=== PATIENT | male | born 1930 | race Caucasian/White ===

== ENCOUNTER 2017-04-13 13:54 | Inpatient (IN) | payer OTHER ==
[~2017-04-13] VITALS: Ht 170.2 cm; Wt 59.6 kg
[2017-04-13] MEDS ORDERED: ACETAMINOPHEN 325 MG TAB PO ONE (15:00)
[2017-04-13] MEDS ORDERED: ACETAMINOPHEN 325 MG TAB ONE (15:06)
[2017-04-13] MEDS ORDERED: IBUPROFEN 600 MG TAB PO STA (17:36)
[2017-04-13] MEDS ORDERED: OSELTAMIVIR PHOSPHATE 75 MG CAP PO ONE (17:45)
[2017-04-13] MEDS ORDERED: LEVOFLOXACIN 500 MG TAB PO ONE (17:45)
--- NOTE | 2017-04-13 18:51 | Diagnostic Imaging Report ---
EXAM: XR CHEST 2 VIEWS DATE: 04/13/2017 5:36 PM INDICATION: Cough COMPARISON: None FINDINGS: Lines and Tubes: None Heart and Mediastinum: Cardiomegaly. Aortic vascular calcifications. Lungs and Pleura: Patchy basilar opacities. Trace effusions. Bones and Soft Tissues: No acute findings. IMPRESSION: 1. Cardiomegaly with mild edema. Trace effusions. 2. Superimposed pneumonia not excluded. Signed by: Dr. Portillo Grant MD on 04/13/2017 6:47 PM
[2017-04-13] MEDS ORDERED: SODIUM CHLORIDE 0.9% 1000ML 1,000 ML IV STA (19:06)
[2017-04-13 19:21] LABS: BASOPHILS % 0.4 % (0.0-1.0); EOSINOPHILS % 0.1 % (0.0-6.0); HEMATOCRIT 24.6 % (38.2-49.6); HEMOGLOBIN 8.3 g/dL (14.0-18.0); LYMPHOCYTES # (AUTO) 0.4 (1.0-3.2); LYMPHOCYTES % 3.5 % (18.0-39.1); MEAN CORPUSCULAR HEMOGLOBIN 28.5 pg (28-32); MEAN CORPUSCULAR HGB CONC 33.7 g/dL (31-35); MEAN CORPUSCULAR VOLUME 84.5 fL (81-99); MONOCYTES % 9.2 % (4.4-11.3); NEUTROPHILS # (AUTO) 9.2 (2.1-6.9); NEUTROPHILS % 86.5 % (38.7-80.0); PLATELET COUNT 229 x10e3/uL (140-360); RED BLOOD COUNT 2.91 x10e6/uL (4.3-5.7); RED CELL DISTRIBUTION WIDTH 13.7 % (11.7-14.4)
[2017-04-13] MEDS ORDERED: WATER STERILE 10 ML VIAL IV SCH (19:30)
[2017-04-13] MEDS: ALBUTEROL SULF 0.083% NEB SOLN 3 ML NEB NEB SCH ×2 (19:30→23:45)
[2017-04-13] MEDS ORDERED: CEFTRIAXONE SOD 1 GM VIAL IV SCH (19:30)
[2017-04-13 19:56] LABS: ALANINE AMINOTRANSFERASE 12 IU/L (0-55); ALBUMIN 2.8 g/dL (3.5-5.0); ALKALINE PHOSPHATASE 57 IU/L (40-150); ANION GAP 10.3 mmol/L (8-16); BLOOD UREA NITROGEN 13 mg/dL (7-26); BUN/CREATININE RATIO 16 (6-25); CALCIUM 7.7 mg/dL (8.4-10.2); CARBON DIOXIDE 23 mmol/L (22-29); CHLORIDE 98 mmol/L (98-107); CREATININE, SERUM 0.81 mg/dL (0.72-1.25); EST GLOMERULAR FILTRATION RATE > 60 ML/MIN (60-); GLUCOSE 120 mg/dL (74-118); POTASSIUM 3.3 mmol/L (3.5-5.1); SODIUM 128 mmol/L (136-145)
[2017-04-13] MEDS ORDERED: ENOXAPARIN SODIUM INJ 100 MG/ML SYR SC ONE (20:00)
[2017-04-13] MEDS: SODIUM CHLORIDE 0.9% 1000ML 1,000 ML IV SCH ×2 (20:25→23:00)
[2017-04-13 21:15] VITALS: BP 96/60
[2017-04-13 22:50] VITALS: BP 96/60
[2017-04-13] MEDS: IPRATROPIUM BROMIDE 0.02% 2.5 ML NEB NEB SCH (23:45)
[2017-04-14] VITALS: BP 99/62
[2017-04-14 01:33] LABS: CREATINE KINASE MB 1.4 ng/mL (0.00-5.00); TROPONIN I 0.075 ng/mL (0-0.300)
[2017-04-14] MEDS: ALBUTEROL SULF 0.083% NEB SOLN 3 ML NEB NEB SCH ×2 (03:00→07:40)
[2017-04-14 04:00] VITALS: BP_SYST 124; BP_SYST 146; BP_DIAS 74; BP_DIAS 76
[2017-04-14] MEDS ORDERED: AMLODIPINE BESY10 MG PO (04:19)
[2017-04-14] MEDS ORDERED: CALCIUM 500+D1 EACH (04:19)
[2017-04-14] MEDS ORDERED: B-12500 MCG (04:20)
[2017-04-14] MEDS ORDERED: ALENDRONATE SOD70 MG (04:21)
[2017-04-14] MEDS ORDERED: ACETAMINOPHEN 325 MG TAB PO PRN (05:00)
[2017-04-14] MEDS ORDERED: DILTIAZEM HCL 5 MG/ML 5 ML VIAL IV PRN (05:00)
[2017-04-14] MEDS ORDERED: METOPROLOL TARTRATE 25 MG TAB PO ONE (05:00)
[2017-04-14] MEDS: SODIUM CHLORIDE 0.9% 1000ML 1,000 ML IV SCH (07:07)
[2017-04-14] MEDS: IPRATROPIUM BROMIDE 0.02% 2.5 ML NEB NEB SCH ×4 (07:40→23:30)
[2017-04-14 08:02] VITALS: BP 104/67
[2017-04-14] MEDS: METOPROLOL TARTRATE 50 MG TAB PO SCH ×2 (08:30→16:00)
[2017-04-14] MEDS: OSELTAMIVIR PHOSPHATE 75 MG CAP PO SCH ×2 (08:30→17:00)
[2017-04-14 08:43] LABS: BASOPHILS % 0.3 % (0.0-1.0); HEMATOCRIT 25.4 % (38.2-49.6); HEMOGLOBIN 8.6 g/dL (14.0-18.0); LYMPHOCYTES # (AUTO) 0.1 (1.0-3.2); LYMPHOCYTES % 1.7 % (18.0-39.1); MEAN CORPUSCULAR HEMOGLOBIN 28.8 pg (28-32); MEAN CORPUSCULAR HGB CONC 33.9 g/dL (31-35); MEAN CORPUSCULAR VOLUME 84.9 fL (81-99); MONOCYTES # (AUTO) 0.5 (0.2-0.8); MONOCYTES % 6.6 % (4.4-11.3); NEUTROPHILS % 90.8 % (38.7-80.0); PLATELET COUNT 234 x10e3/uL (140-360); RED BLOOD COUNT 2.99 x10e6/uL (4.3-5.7); RED CELL DISTRIBUTION WIDTH 13.9 % (11.7-14.4)
[2017-04-14] MEDS ORDERED: AZITHROMYCIN 500MG/NS 250 ML 250 ML IV SCH (09:00)
[2017-04-14 09:21] LABS: ANION GAP 10.1 mmol/L (8-16); BLOOD UREA NITROGEN 11 mg/dL (7-26); BUN/CREATININE RATIO 15 (6-25); CALCIUM 7.3 mg/dL (8.4-10.2); CARBON DIOXIDE 22 mmol/L (22-29); CHLORIDE 104 mmol/L (98-107); CREATININE, SERUM 0.71 mg/dL (0.72-1.25); EST GLOMERULAR FILTRATION RATE > 60 ML/MIN (60-); GLUCOSE 96 mg/dL (74-118); POTASSIUM 3.1 mmol/L (3.5-5.1); SODIUM 133 mmol/L (136-145)
[2017-04-14] MEDS ORDERED: LEVOFLOXACIN 500 MG TAB PO ONE (10:30)
[2017-04-14] MEDS ORDERED: POTASSIUM CHLORIDE 20 MEQ TAB CR PO ONE (10:30)
[2017-04-14 11:58] LABS: CREATINE KINASE MB 1.7 ng/mL (0.00-5.00); TROPONIN I 0.074 ng/mL (0-0.300)
[2017-04-14 12:00] VITALS: BP 108/56
[2017-04-14] MEDS: LEVOFLOXACIN 500MG/D5W 100ML 100 ML IV SCH (12:00)
[2017-04-14] MEDS ORDERED: LEVALBUTEROL HCL SOLN NEBU 1.25 MG/3 ML NEB INH PRN (12:00)
[2017-04-14] MEDS: LEVALBUTEROL HCL SOLN NEBU 1.25 MG/3 ML NEB INH SCH ×3 (13:00→23:30)
[2017-04-14] MEDS ORDERED: VANCOMYCIN 1GM/NS 250 ML 250 ML IV ONE (13:30)
[2017-04-14] MEDS: METHYLPREDNISOLONE SOD SUCC 40 MG/ML VIAL IV SCH ×2 (14:00→20:13)
--- NOTE | 2017-04-14 15:44 | History and Physical ---
PRIMARY CARE PROVIDER: Is Dr. Buckley. CHIEF COMPLAINT: Fever and influenza. HISTORY: Patient is a pleasant 86-year-old male who came in because of cough and fever for the past 2 days. Patient was found to have influenza positive. The patient is otherwise stable. He is feeling much better and back to his baseline. Fever has resolved, low-grade temperature with giving Tylenol. The patient is breathing much better. He requested to go home for the holiday. PAST MEDICAL HISTORY: Hypertension, osteoporosis and colon cancer. PAST SURGICAL HISTORY: Noncontributory. SOCIAL HISTORY: Patient does not smoke or use alcohol. No recreational drug use. ALLERGIES: TO NO KNOWN ALLERGY. HOME MEDICATIONS: List reviewed. REVIEW OF SYSTEMS: Cough, fever improving. PHYSICAL EXAMINATION: VITAL SIGNS: Temperature is 99.7. Blood pressure 104/67. Pulse rate 111. Respiration 18. Repeated pulse rate is 90. GENERAL: The patient is not in acute distress. He is much better. HEENT: Normocephalic, atraumatic, anicteric. NECK: Supple grossly. PULMONARY: Diminished breath sounds without any wheezing. CARDIOVASCULAR: S1/S2. Regular rate and rhythm. ABDOMEN: Soft. Positive bowel sounds. Nontender, nondistended. EXTREMITIES: No cyanosis or edema. NEUROLOGIC: There is no gross focal deficit. LABORATORY: WBC is 7.7, hemoglobin 8.6, hematocrit 25.4, platelets 234. Sodium is 128, potassium 3.3, chloride 98, bicarb 23, BUN 13, creatinine 0.8. Glucose is 120. Influenza test is positive. IMPRESSION: 1. Influenza. 2. Upper respiratory infection. 3. Possible early pneumonia. PLAN: Patient to go home for the holiday. He will be resting at home. He will get Atrovent HFA p.r.n., Proventil p.r.n., Claritin 10 mg daily, Tamiflu 75 mg b.i.d. for 7 days, Mucinex 600 mg b.i.d., Levaquin 500 mg daily for 5 days, and Robitussin AC p.r.n. The patient to rest at home. Follow up with his family doctor next week. Job#: [id number] EV
[2017-04-14 16:40] VITALS: BP 102/58
[2017-04-14 17:08] LABS: CREATINE KINASE MB 1.5 ng/mL (0.00-5.00); TROPONIN I 0.052 ng/mL (0-0.300)
--- NOTE | 2017-04-14 18:47 | Diagnostic Imaging Report ---
EXAM: CT Chest WITHOUT contrast INDICATION: COMPARISON: None. TECHNIQUE: The Chest was scanned utilizing a multidetector helical scanner without the use of IV contrast. Coronal and sagittal reformations were obtained. Reformatted axial MIP images were obtained and reviewed. IV CONTRAST: None COMPLICATIONS: None RADIATION DOSE: Total DLP: 463 mGy*cm Estimated effective dose: (DLP x 0.015 x size factor) mSv CTDIvol has been reviewed. It is below the limits set by the Radiation Protocol Committee (RPC). FINDINGS: Lines and Tubes: None. Lower Neck: The visualized thyroid gland is grossly unremarkable with no suspicious or significant nodule identified. Heart and Great Vessels: The aorta and main pulmonary artery measure 41 and 38 mm. respectively. The cardiothoracic radio measures 14/26. Small pericardial effusion. Decreased attenuation of blood pool. Advanced coronary artery vascular calcifications, mild mitral annular calcifications, and moderate aortic valvular calcifications. Lymph Nodes: Scattered mediastinal lymph nodes, borderline by size criteria. The hilar regions are sub-optimally evaluated given lack of IV contrast. Lungs: Small left and moderate right pleural effusion. Dense areas of consolidation in the lung bases incompletely evaluated given lack of IV contrast. Scattered septal thickening and scattered groundglass opacities. Minimal bronchiectasis and airspace opacity in the anterior aspect of the left upper lobe with more focal alveolar opacity medial aspect right upper lobe and right middle lobe. Granuloma left lower lobe. Upper abdomen: Limited. Unremarkable. Bones and Soft Tissues: No acute findings. IMPRESSION: 1. Exam limited given lack of IV contrast. 2. Cardiomegaly, small pericardial effusion, small left pleural effusion, moderate right pleural effusion, septal thickening, and scattered groundglass opacities consistent with volume overload. 3. Dense areas of consolidation in the lung bases incompletely evaluated given lack of IV contrast. Findings could represent atelectasis and/or pneumonia, with aspiration not excluded. Scattered areas of nodularity likely infectious. Underlying malignancy difficult to exclude. 4. Ectasia ascending aorta 41 mm. 5. Prominent pulmonary trunk, which can be seen in the setting of pulmonary hypertension. 6. Probable reactive adenopathy. Signed by: Dr. Portillo Grant MD on 04/14/2017 6:44 PM
[2017-04-14 20:00] VITALS: BP 92/53
[2017-04-15] VITALS: BP 97/55
[2017-04-15 04:00] VITALS: BP 119/77
[2017-04-15 08:00] VITALS: BP 133/82
[2017-04-15] MEDS: LEVALBUTEROL HCL SOLN NEBU 1.25 MG/3 ML NEB INH SCH ×3 (08:20→20:12)
[2017-04-15] MEDS: IPRATROPIUM BROMIDE 0.02% 2.5 ML NEB NEB SCH ×3 (08:20→20:12)
[2017-04-15] MEDS: METHYLPREDNISOLONE SOD SUCC 40 MG/ML VIAL IV SCH ×2 (09:00→21:49)
[2017-04-15] MEDS: METOPROLOL TARTRATE 50 MG TAB PO SCH ×2 (09:00→17:00)
[2017-04-15] MEDS: OSELTAMIVIR PHOSPHATE 75 MG CAP PO SCH ×2 (09:00→17:00)
[2017-04-15] MEDS ORDERED: POTASSIUM CHLORIDE 20 MEQ TAB CR PO ONE ×2 (09:30→10:00)
[2017-04-15 10:02] LABS: BASOPHILS % 0.1 % (0.0-1.0); HEMATOCRIT 25.8 % (38.2-49.6); HEMOGLOBIN 8.4 g/dL (14.0-18.0); LYMPHOCYTES # (AUTO) 0.2 (1.0-3.2); LYMPHOCYTES % 2.3 % (18.0-39.1); MEAN CORPUSCULAR HEMOGLOBIN 27.8 pg (28-32); MEAN CORPUSCULAR HGB CONC 32.6 g/dL (31-35); MEAN CORPUSCULAR VOLUME 85.4 fL (81-99); MONOCYTES # (AUTO) 0.5 (0.2-0.8); MONOCYTES % 4.5 % (4.4-11.3); NEUTROPHILS # (AUTO) 9.5 (2.1-6.9); NEUTROPHILS % 92.4 % (38.7-80.0); PLATELET COUNT 246 x10e3/uL (140-360); RED BLOOD COUNT 3.02 x10e6/uL (4.3-5.7); RED CELL DISTRIBUTION WIDTH 14.2 % (11.7-14.4)
[2017-04-15] MEDS ORDERED: FUROSEMIDE INJ 10 MG/ML 4 ML VIAL IV ONE (10:15)
[2017-04-15 10:22] LABS: ANION GAP 9.8 mmol/L (8-16); BLOOD UREA NITROGEN 11 mg/dL (7-26); BUN/CREATININE RATIO 15 (6-25); CALCIUM 7.5 mg/dL (8.4-10.2); CARBON DIOXIDE 22 mmol/L (22-29); CHLORIDE 102 mmol/L (98-107); CREATININE, SERUM 0.74 mg/dL (0.72-1.25); EST GLOMERULAR FILTRATION RATE > 60 ML/MIN (60-); GLUCOSE 175 mg/dL (74-118); POTASSIUM 3.8 mmol/L (3.5-5.1); SODIUM 130 mmol/L (136-145)
--- NOTE | 2017-04-15 11:14 | Consultation ---
DATE OF CONSULTATION: April 14, 2017 REASON FOR CONSULTATION: Hypoxia and shortness of breath. CHIEF COMPLAINT: The patient is admitted with shortness of breath and tested positive for influenza. HPI: Mr. Peters is an 86-year-old male who has history of hypertension. He sees Dr. Buckley on a regular basis. Patient denies any complaints of chest pain or abdominal pain, nausea or vomiting. reported that 3 days ago he started having fever of 102, shortness of breath and wheezing and he was having difficulty walking so they decided to come to the emergency room and the emergency room chest x-ray was done. I have reviewed the images and not showing any focal infiltrate. Possibility of pneumonia, however, not sure. He has been started on IV Levaquin and p.o. Tamiflu with nebulizer treatment. Today his oxygen saturation was checked and he was hypoxic to 80% without oxygen and, hence, pulmonary consultation was called. REVIEW OF SYSTEMS: GENERAL: Denies any chills. He was having fever at home here. The T max was 101.2. HEENT: Denies any head trauma or head injury. Denies any earache, nosebleed. The patient has some sore throat. RESPIRATORY: He has wheezing and shortness of breath. GI: Denies any nausea or vomiting. CVS: Denies any chest pain. MUSCULOSKELETAL: As per HPI. The rest of the review of systems are negative except as in HPI. PAST MEDICAL HISTORY: Hypertension. Patient has history of colon cancer in 1999 and has colostomy. FAMILY HISTORY AND SOCIAL HISTORY: He smoked for almost 50 years, and quit around 25 years ago and not on any nebulizer. Lives with his . He used to work in [employer] plant. PHYSICAL EXAMINATION: VITALS: Temperature 99.7. Pulse 111. Blood pressure 104/67. Respiratory rate of 18. O2 sat 100% on 5 liters. T-max of 101.2. SKIN: Warm and dry. GENERAL APPEARANCE: He is an elderly male in mild respiratory distress. He is wheezing bilaterally HEENT: Normocephalic, atraumatic. Pupils reactive. NECK: Supple with no JVD. Thyroid not enlarged. CHEST: Wheezing bilaterally. HEART: S1 and S2 audible. ABDOMEN: Soft, nontender and nondistended. Colostomy. EXTREMITIES: No pedal edema. NEUROLOGIC: Awake and alert. LABORATORY DATA: Sodium 133, potassium 3.1, chloride 104, BUN 11, creatinine 0.7. White count of 7.73, hemoglobin 8.6, platelets 234. Cardiac enzymes negative. I have reviewed the chest x-ray images, unlikely that there is any pneumonia. ASSESSMENT AND PLAN: Mr. Peters is an 86-year-old male who presented with influenza and worsening shortness of breath, now wheezing, likely has reactive airways due to influenza versus underlying pneumonia. CURRENT PROBLEMS: 1. Reactive airways due to influenza infection. 2. Possible pneumonia. 3. Hypertension. 4. History of colostomy. 5. Remote history of colon cancer. Has permanent colostomy. PLAN: 1. Agree with Tamiflu and Levaquin. 2. Will give 1 dose of vancomycin. 3. CT chest has been ordered and will follow up the results. If there is no clear-cut pneumonia, the patient will not need vancomycin. 4. Hypoxia, likely due to reactive airway and wheezing. May have underlying COPD as patient has almost [id number] smoking history. He may need to be discharged on home oxygen. 5. Will add low-dose steroids for reactive airways. 6. Continue the patient on nebulizer treatment as ordered. Discussed with patient's at bedside. Job#: [id number]
[2017-04-15] MEDS: LEVOFLOXACIN 500MG/D5W 100ML 100 ML IV SCH (12:00)
[2017-04-15 16:00] VITALS: BP 139/67
[2017-04-15] MEDS ORDERED: SODIUM CHLORIDE 0.9% 250ML 250 ML ONE (16:02)
[2017-04-15] MEDS ORDERED: ENOXAPARIN SOD INJ 40 MG/0.4 ML SYR SC SCH (17:00)
[2017-04-15 20:00] VITALS: BP 130/67
[2017-04-16] VITALS: BP 124/77
[2017-04-16] MEDS: LEVALBUTEROL HCL SOLN NEBU 1.25 MG/3 ML NEB INH SCH ×4 (02:05→19:00)
[2017-04-16] MEDS: IPRATROPIUM BROMIDE 0.02% 2.5 ML NEB NEB SCH ×4 (02:05→19:00)
[2017-04-16 04:00] VITALS: BP 140/71
--- NOTE | 2017-04-16 05:07 | Consultation ---
DATE OF CONSULTATION: April 15, 2017 REASON FOR CONSULTATION: Atrial fibrillation. HISTORY OF PRESENT ILLNESS: Mr. Damon is an 86-year-old gentleman with a past medical history as listed below, apparently had some cough and shortness of breath on Saturday. On Saturday, the patient developed a temperature of 102 and was repeatedly coughing to the point that his sides of his chest were hurting. He decided to come to the hospital. He was diagnosed with influenza and pneumonia, and admitted to the hospital. Patient states he is received a flu shot about 3 months back. He was noted to be in atrial fibrillation, so I was consulted. Patient and his state that have he has a history of atrial fibrillation, and has not been taking and anticoagulants. He feels a little bit better now. REVIEW OF SYSTEMS CONSTITUTIONAL: Has some fatigue and weakness. HEENT: No headache, blurring of vision, seizures, or syncope. CARDIOVASCULAR: No chest pain, dyspnea, orthopnea, PND. RESPIRATORY: Has cough. No fever. A scant amount of expectoration. GI: No abdominal pain, vomiting or diarrhea. : No, dysuria frequency or incontinence. ALLERGIES: NO KNOWN DRUG ALLERGIES. MEDICATIONS: See list. PAST MEDICAL HISTORY: History of hypertension and history of colon cancer. SOCIAL HISTORY: Quit smoking in 1968. Does not drink alcohol. FAMILY HISTORY: Noncontributory. PHYSICAL EXAMINATION GENERAL: A moderately built and nourished gentleman alert, oriented, and not in any obvious distress. VITALS: Heart rate 73, blood pressure 133/82, respiratory rate 18, temperature 95.8. HEENT: Atraumatic. NECK: No JVD, bruit, thyromegaly, or lymphadenopathy. CARDIOVASCULAR: First and 2nd heart sounds heard. No murmurs, rubs or gallops appreciated. CHEST: Clear to auscultation. ABDOMEN: Soft and nontender. EXTREMITIES: No edema. LABS: EKG shows atrial fibrillation at 98 beats per minute, normal axis and incomplete right bundle branch block. Nonspecific ST-T changes. IMPRESSION 1. Influenza. 2. Atrial fibrillation. 3. History of hypertension. 4. History of colon cancer. 5. Pneumonia. 6. Anemia. 7. Hypokalemia. PLAN 1. Patient is symptomatically better. 2. Continue with antibiotics. 3. Patient's heart rate fluctuates on even beta blockers. Can continue the same. 4. Replace potassium. 5. Discussed with them about long-term anticoagulation. He is going to think about it. 6. Further cardiac workup depending on clinical course. I discussed my impression and plan of management with the patient and the family, and they understand. As always, I appreciate and thank you very much for the referral. Job#: [id number] RI
[2017-04-16 07:05] LABS: BASOPHILS % 0.1 % (0.0-1.0); HEMATOCRIT 24.7 % (38.2-49.6); HEMOGLOBIN 8.1 g/dL (14.0-18.0); LYMPHOCYTES # (AUTO) 0.2 (1.0-3.2); LYMPHOCYTES % 1.8 % (18.0-39.1); MEAN CORPUSCULAR HEMOGLOBIN 27.8 pg (28-32); MEAN CORPUSCULAR HGB CONC 32.8 g/dL (31-35); MEAN CORPUSCULAR VOLUME 84.9 fL (81-99); MONOCYTES # (AUTO) 0.6 (0.2-0.8); MONOCYTES % 4.7 % (4.4-11.3); NEUTROPHILS # (AUTO) 11.6 (2.1-6.9); NEUTROPHILS % 92.6 % (38.7-80.0); PLATELET COUNT 252 x10e3/uL (140-360); RED BLOOD COUNT 2.91 x10e6/uL (4.3-5.7); RED CELL DISTRIBUTION WIDTH 14.2 % (11.7-14.4)
[2017-04-16 07:19] LABS: ANION GAP 10.8 mmol/L (8-16); BLOOD UREA NITROGEN 15 mg/dL (7-26); BUN/CREATININE RATIO 21 (6-25); CALCIUM 7.9 mg/dL (8.4-10.2); CARBON DIOXIDE 23 mmol/L (22-29); CHLORIDE 104 mmol/L (98-107); CREATININE, SERUM 0.73 mg/dL (0.72-1.25); EST GLOMERULAR FILTRATION RATE > 60 ML/MIN (60-); GLUCOSE 126 mg/dL (74-118); POTASSIUM 4.8 mmol/L (3.5-5.1); SODIUM 133 mmol/L (136-145)
[2017-04-16 08:12] LABS: INR 0.97; PROTHROMBIN TIME 13.4 seconds (11.9-14.5)
[2017-04-16 08:19] VITALS: BP 122/79
[2017-04-16] MEDS: METOPROLOL TARTRATE 50 MG TAB PO SCH ×3 (09:56→21:35)
[2017-04-16] MEDS: METHYLPREDNISOLONE SOD SUCC 40 MG/ML VIAL IV SCH ×2 (10:02→21:35)
[2017-04-16] MEDS: AMLODIPINE BESYLATE 10 MG TAB PO SCH (10:03)
[2017-04-16] MEDS: OSELTAMIVIR PHOSPHATE 75 MG CAP PO SCH ×2 (10:03→16:39)
[2017-04-16] MEDS: APIXAB 2.5 MG TABLET PO SCH ×2 (10:03→16:39)
[2017-04-16] MEDS ORDERED: FUROSEMIDE INJ 10 MG/ML 4 ML VIAL IV SCH (12:30)
[2017-04-16 12:39] VITALS: BP 125/82
[2017-04-16] MEDS: LEVOFLOXACIN 500MG/D5W 100ML 100 ML IV SCH (13:05)
[2017-04-16] MEDS ORDERED: SODIUM CHLORIDE 0.9% 250ML 250 ML ONE (13:58)
[2017-04-16] MEDS ORDERED: PIPER-TAZ 3.375 GM 50 ML IV SCH (14:00)
[2017-04-16] MEDS: PIPERACILLIN/TAZOBAC 3.375 GM in SODIUM CHLORIDE 0.9% 100 ML IV SCH ×2 (14:15→21:36)
[2017-04-16 16:37] VITALS: BP 129/88
[2017-04-16] MEDS: FUROSEMIDE INJ 10 MG/ML 4 ML VIAL IV SCH (16:39)
[2017-04-16 20:00] VITALS: BP 127/90
[2017-04-17] VITALS: BP 128/75
[2017-04-17] MEDS: LEVALBUTEROL HCL SOLN NEBU 1.25 MG/3 ML NEB INH SCH ×4 (01:00→21:55)
[2017-04-17] MEDS: IPRATROPIUM BROMIDE 0.02% 2.5 ML NEB NEB SCH ×4 (01:00→21:55)
[2017-04-17] MEDS: PIPERACILLIN/TAZOBAC 3.375 GM in SODIUM CHLORIDE 0.9% 100 ML IV SCH ×3 (05:33→22:08)
[2017-04-17 07:20] LABS: BASOPHILS % 0.1 % (0.0-1.0); HEMATOCRIT 25.8 % (38.2-49.6); HEMOGLOBIN 8.7 g/dL (14.0-18.0); LYMPHOCYTES # (AUTO) 0.4 (1.0-3.2); LYMPHOCYTES % 3.5 % (18.0-39.1); MEAN CORPUSCULAR HEMOGLOBIN 28.5 pg (28-32); MEAN CORPUSCULAR HGB CONC 33.7 g/dL (31-35); MEAN CORPUSCULAR VOLUME 84.6 fL (81-99); MONOCYTES # (AUTO) 0.7 (0.2-0.8); MONOCYTES % 6.5 % (4.4-11.3); NEUTROPHILS # (AUTO) 9.3 (2.1-6.9); NEUTROPHILS % 89.1 % (38.7-80.0); PLATELET COUNT 309 x10e3/uL (140-360); RED BLOOD COUNT 3.05 x10e6/uL (4.3-5.7); RED CELL DISTRIBUTION WIDTH 14.4 % (11.7-14.4)
[2017-04-17] MEDS: ACETYLCYSTEINE 20% INHAL SOLN 30 ML VIAL INH SCH ×2 (07:30→12:15)
[2017-04-17 07:50] LABS: ANION GAP 10.9 mmol/L (8-16); BLOOD UREA NITROGEN 18 mg/dL (7-26); BUN/CREATININE RATIO 23 (6-25); CALCIUM 7.9 mg/dL (8.4-10.2); CARBON DIOXIDE 26 mmol/L (22-29); CHLORIDE 101 mmol/L (98-107); CREATININE, SERUM 0.78 mg/dL (0.72-1.25); EST GLOMERULAR FILTRATION RATE > 60 ML/MIN (60-); GLUCOSE 123 mg/dL (74-118); POTASSIUM 3.9 mmol/L (3.5-5.1); SODIUM 134 mmol/L (136-145)
[2017-04-17 08:01] VITALS: BP 123/74
[2017-04-17] MEDS: OSELTAMIVIR PHOSPHATE 75 MG CAP PO SCH ×2 (09:05→16:51)
[2017-04-17] MEDS: AMLODIPINE BESYLATE 10 MG TAB PO SCH (09:05)
[2017-04-17] MEDS: METOPROLOL TARTRATE 50 MG TAB PO SCH ×2 (09:05→16:51)
[2017-04-17] MEDS: APIXAB 2.5 MG TABLET PO SCH ×2 (09:05→16:50)
[2017-04-17] MEDS: FUROSEMIDE INJ 10 MG/ML 4 ML VIAL IV SCH ×2 (09:05→16:50)
[2017-04-17] MEDS: METHYLPREDNISOLONE SOD SUCC 40 MG/ML VIAL IV SCH ×2 (09:05→22:08)
[2017-04-17 12:00] VITALS: BP 119/74
[2017-04-17] MEDS: LEVOFLOXACIN 500MG/D5W 100ML 100 ML IV SCH (12:45)
[2017-04-17 16:11] VITALS: BP 99/76
[2017-04-17 20:00] VITALS: BP 119/76
[2017-04-18] VITALS: BP 128/65
[2017-04-18] MEDS: METOPROLOL TARTRATE 50 MG TAB PO SCH ×4 (00:10→17:06)
[2017-04-18] MEDS: IPRATROPIUM BROMIDE 0.02% 2.5 ML NEB NEB SCH ×5 (02:55→23:45)
[2017-04-18] MEDS: LEVALBUTEROL HCL SOLN NEBU 1.25 MG/3 ML NEB INH SCH ×5 (02:55→23:45)
[2017-04-18 04:00] VITALS: BP 116/76
[2017-04-18] MEDS: PIPERACILLIN/TAZOBAC 3.375 GM in SODIUM CHLORIDE 0.9% 100 ML IV SCH ×3 (06:07→22:01)
[2017-04-18 08:18] VITALS: BP 122/84
[2017-04-18] MEDS: ACETYLCYSTEINE 20% INHAL SOLN 30 ML VIAL INH SCH (08:50)
[2017-04-18] MEDS: AMLODIPINE BESYLATE 10 MG TAB PO SCH (09:15)
[2017-04-18] MEDS: OSELTAMIVIR PHOSPHATE 75 MG CAP PO SCH ×2 (09:15→17:05)
[2017-04-18] MEDS: METHYLPREDNISOLONE SOD SUCC 40 MG/ML VIAL IV SCH (09:15)
[2017-04-18] MEDS: APIXAB 2.5 MG TABLET PO SCH ×2 (09:15→17:05)
[2017-04-18] MEDS: FUROSEMIDE INJ 10 MG/ML 4 ML VIAL IV SCH (09:30)
[2017-04-18] MEDS: LEVOFLOXACIN 500MG/D5W 100ML 100 ML IV SCH (11:55)
[2017-04-18 12:06] VITALS: BP 108/78
--- NOTE | 2017-04-18 14:13 | Diagnostic Imaging Report ---
PROCEDURE: A single AP view of the chest. COMPARISON: Patients [facility], CT, CT CHEST WO, 04/14/2017, 18:06. INDICATIONS: SHORTNESS OF BREATH FINDINGS: Lines/tubes: None. Lungs and pleura: Lungs are well-inflated. Patchy opacity in the left lower lung with blunting of the right lateral costophrenic sulcus, likely representing the previously visualized left effusion and associated compressive atelectasis. Small right pleural effusion and likely associated compressive atelectasis. Heart and mediastinum: Stable cardiomegaly with mild central pulmonary venous congestion. Bones: No acute bony abnormality. IMPRESSION: 1. stable cardiomegaly with mild central pulmonary venous congestion. 2. Bilateral pleural effusions and likely associated atelectasis. Carlos Blair M.D. Dictated by: Carlos Blair M.D. on 04/18/2017 at 14:22 Electronically approved by: Carlos Blair M.D. on 04/18/2017 at 14:22
[2017-04-18 16:06] VITALS: BP 106/69
[2017-04-18 20:00] VITALS: BP 125/75
[2017-04-19] VITALS: BP 107/64
[2017-04-19] MEDS: METOPROLOL TARTRATE 50 MG TAB PO SCH ×4 (00:12→18:00)
[2017-04-19 04:00] VITALS: BP 104/72
[2017-04-19] MEDS: PIPERACILLIN/TAZOBAC 3.375 GM in SODIUM CHLORIDE 0.9% 100 ML IV SCH (06:20)
[2017-04-19 07:55] VITALS: BP 128/86
[2017-04-19] MEDS: LEVALBUTEROL HCL SOLN NEBU 1.25 MG/3 ML NEB INH SCH ×3 (07:57→19:15)
[2017-04-19] MEDS: IPRATROPIUM BROMIDE 0.02% 2.5 ML NEB NEB SCH ×3 (07:57→19:15)
[2017-04-19] MEDS: APIXAB 2.5 MG TABLET PO SCH ×2 (08:50→17:00)
[2017-04-19] MEDS: PREDNISONE 20 MG TAB PO SCH (08:51)
[2017-04-19] MEDS: OSELTAMIVIR PHOSPHATE 75 MG CAP PO SCH ×2 (08:51→19:09)
[2017-04-19] MEDS: FUROSEMIDE 40 MG TAB PO SCH (08:51)
[2017-04-19] MEDS: AMLODIPINE BESYLATE 10 MG TAB PO SCH (08:51)
[2017-04-19] MEDS: IRON SUCROSE 100 MG in SODIUM CHLORIDE 0.9% 100 ML 100 ML IV SCH (11:30)
[2017-04-19 11:38] VITALS: BP 94/65
[2017-04-19 16:08] VITALS: BP 116/78
[2017-04-19 20:00] VITALS: BP 100/71
[2017-04-20 00:23] VITALS: BP 98/71
[2017-04-20] MEDS: LEVALBUTEROL HCL SOLN NEBU 1.25 MG/3 ML NEB INH SCH ×3 (00:30→19:32)
[2017-04-20] MEDS: IPRATROPIUM BROMIDE 0.02% 2.5 ML NEB NEB SCH ×3 (00:30→19:32)
[2017-04-20 04:00] VITALS: BP 115/71
[2017-04-20] MEDS: METOPROLOL TARTRATE 50 MG TAB PO SCH ×4 (05:35→17:15)
[2017-04-20 07:35] VITALS: BP 113/80
[2017-04-20 07:49] LABS: BASOPHILS % 0.1 % (0.0-1.0); EOSINOPHILS # (AUTO) 0.1 (0.0-0.4); EOSINOPHILS % 1.1 % (0.0-6.0); HEMATOCRIT 29.3 % (38.2-49.6); HEMOGLOBIN 9.7 g/dL (14.0-18.0); LYMPHOCYTES # (AUTO) 1.6 (1.0-3.2); LYMPHOCYTES % 17.9 % (18.0-39.1); MEAN CORPUSCULAR HEMOGLOBIN 27.5 pg (28-32); MEAN CORPUSCULAR HGB CONC 33.1 g/dL (31-35); MONOCYTES # (AUTO) 1.1 (0.2-0.8); NEUTROPHILS # (AUTO) 6.1 (2.1-6.9); NEUTROPHILS % 67.1 % (38.7-80.0); PLATELET COUNT 429 x10e3/uL (140-360); RED BLOOD COUNT 3.53 x10e6/uL (4.3-5.7); RED CELL DISTRIBUTION WIDTH 14.1 % (11.7-14.4)
[2017-04-20 08:07] LABS: BLOOD UREA NITROGEN 18 mg/dL (7-26); BUN/CREATININE RATIO 23 (6-25); CALCIUM 7.8 mg/dL (8.4-10.2); CARBON DIOXIDE 32 mmol/L (22-29); CHLORIDE 99 mmol/L (98-107); CREATININE, SERUM 0.78 mg/dL (0.72-1.25); EST GLOMERULAR FILTRATION RATE > 60 ML/MIN (60-); GLUCOSE 80 mg/dL (74-118); SODIUM 138 mmol/L (136-145)
[2017-04-20] MEDS: PREDNISONE 20 MG TAB PO SCH (09:00)
[2017-04-20] MEDS: OSELTAMIVIR PHOSPHATE 75 MG CAP PO SCH ×2 (09:00→17:14)
[2017-04-20] MEDS: FUROSEMIDE 40 MG TAB PO SCH (09:00)
[2017-04-20] MEDS: AMLODIPINE BESYLATE 10 MG TAB PO SCH (09:00)
[2017-04-20] MEDS: APIXAB 2.5 MG TABLET PO SCH ×2 (10:33→17:14)
[2017-04-20 11:19] VITALS: BP 93/67
[2017-04-20] MEDS: IRON SUCROSE 100 MG in SODIUM CHLORIDE 0.9% 100 ML 100 ML IV SCH (12:08)
[2017-04-20] MEDS: POTASSIUM CHLORIDE 20 MEQ TAB CR PO SCH ×3 (14:30→20:20)
[2017-04-20 15:33] VITALS: BP 106/76
[2017-04-20 20:00] VITALS: BP 105/71
[2017-04-21] VITALS: BP 105/64
[2017-04-21] MEDS: IPRATROPIUM BROMIDE 0.02% 2.5 ML NEB NEB SCH ×2 (01:20→07:24)
[2017-04-21] MEDS: LEVALBUTEROL HCL SOLN NEBU 1.25 MG/3 ML NEB INH SCH ×2 (01:20→07:24)
[2017-04-21] MEDS: POTASSIUM CHLORIDE 20 MEQ TAB CR PO SCH ×2 (02:00→09:02)
[2017-04-21 04:00] VITALS: BP 130/67
[2017-04-21] MEDS: METOPROLOL TARTRATE 50 MG TAB PO SCH ×3 (05:59→12:00)
[2017-04-21 07:38] VITALS: BP 121/72
[2017-04-21 08:55] LABS: BASOPHILS % 0.1 % (0.0-1.0); EOSINOPHILS # (AUTO) 0.2 (0.0-0.4); HEMATOCRIT 30.1 % (38.2-49.6); HEMOGLOBIN 9.9 g/dL (14.0-18.0); LYMPHOCYTES # (AUTO) 1.2 (1.0-3.2); LYMPHOCYTES % 15.2 % (18.0-39.1); MEAN CORPUSCULAR HEMOGLOBIN 27.5 pg (28-32); MEAN CORPUSCULAR HGB CONC 32.9 g/dL (31-35); MEAN CORPUSCULAR VOLUME 83.6 fL (81-99); MONOCYTES # (AUTO) 0.9 (0.2-0.8); MONOCYTES % 11.3 % (4.4-11.3); NEUTROPHILS # (AUTO) 5.3 (2.1-6.9); NEUTROPHILS % 66.8 % (38.7-80.0); PLATELET COUNT 462 x10e3/uL (140-360); RED CELL DISTRIBUTION WIDTH 14.3 % (11.7-14.4)
[2017-04-21] MEDS: AMLODIPINE BESYLATE 10 MG TAB PO SCH (09:01)
[2017-04-21] MEDS: PREDNISONE 20 MG TAB PO SCH (09:01)
[2017-04-21] MEDS: FUROSEMIDE 40 MG TAB PO SCH (09:01)
[2017-04-21] MEDS: OSELTAMIVIR PHOSPHATE 75 MG CAP PO SCH (09:01)
[2017-04-21] MEDS: APIXAB 2.5 MG TABLET PO SCH (09:01)
[2017-04-21 09:10] LABS: ANION GAP 7.5 mmol/L (8-16); BLOOD UREA NITROGEN 16 mg/dL (7-26); BUN/CREATININE RATIO 21 (6-25); CALCIUM 7.9 mg/dL (8.4-10.2); CARBON DIOXIDE 31 mmol/L (22-29); CHLORIDE 98 mmol/L (98-107); CREATININE, SERUM 0.75 mg/dL (0.72-1.25); EST GLOMERULAR FILTRATION RATE > 60 ML/MIN (60-); GLUCOSE 91 mg/dL (74-118); POTASSIUM 3.5 mmol/L (3.5-5.1); SODIUM 133 mmol/L (136-145)
[2017-04-21] MEDS: IRON SUCROSE 100 MG in SODIUM CHLORIDE 0.9% 100 ML 100 ML IV SCH (11:00)
[2017-04-21 11:25] VITALS: BP 105/63
--- NOTE | 2017-04-22 01:59 | Discharge Summary ---
No Dictation 00:07 seconds. Job#: [id number]
--- NOTE | 2017-04-22 02:03 | Discharge Summary ---
PCP: Dr. Jackson Buckley SELVAGE MACHINE OPERATOR: Dr. Yonis Vera and Dr. Janet Calle. FINAL DIAGNOSES 1. Influenza with community-acquired pneumonia. 2. Atrial fibrillation with acute diastolic dysfunction congestive heart failure. 3. Chronic anemia. 4. Medical debility. SUMMARY: Patient is an 86-year-old male who came in with early pneumonia associated with influenza. The patient was in respiratory insufficiency. He did not have any respiratory failure, although he was hypoxic and required oxygen support and nebulizer treatment. He was started on Tamiflu and community-acquired pneumonia treatment. While he was hospitalized, he developed recurrent atrial fibrillation. He was placed on metoprolol and Eliquis. The patient is doing much better now. He is stable. At this time, he will go home today. The patient refused skilled care and also refused any home health. He did not want qualify for oxygen on exertion. His oxygen saturation at room air was 94%. The patient will go home with the following medication instructions: 1. Resume home medications. 2. Eliquis 2.5 mg twice a day. 3. Lopressor 50 mg b.i.d. 4. Lasix 40 mg daily. 5. Potassium 20 mEq daily. 6. Xopenex HFA 2 puffs q.4 h. p.r.n. 7. Chey-tussin 5 mL p.o. q.6 h. as needed for cough. Patient is stable and discharged home today. Follow up with Dr. Jackson Buckley as planned. Patient will go home today with spouse. Patient has very good overall family support. Job#: [id number] LETICIA
== END 2017-04-21 12:59 | disposition home or self-care (01) | DRG 193 ==
LOC: ER 13:54 → MED/SURG3 20:45 → INTOOBSV 04-14 09:33 → OBSVTOIN 04-14 09:33
PROVIDERS: ADMIT Internal Medicine; ATTEND Internal Medicine
DX: J09.X1 Influenza due to identified novel influenza A virus with pneumonia (principal); I50.31 Acute diastolic (congestive) heart failure; J18.8 Other pneumonia, unspecified organism; I48.91 Unspecified atrial fibrillation; I11.0 Hypertensive heart disease with heart failure; D64.9 Anemia, unspecified; J44.9 Chronic obstructive pulmonary disease, unspecified; E87.6 Hypokalemia; Z85.038 Personal history of other malignant neoplasm of large intestine; Z93.3 Colostomy status; Z87.891 Personal history of nicotine dependence; R09.02 Hypoxemia
CPT/HCPCS: 36415; 71010; 71020; 71250; 80048; 80053; 82550; 82553; 82948; 83880; 84484; 85025; 85610; 87040; 87400; 93005; 93306; 94660; 99284; G0378; J0456; J1650; J1756; J1940; J1956; J2543; J2920; J3370; J7030; J7050

== ENCOUNTER → 2017-06-26 | Outpatient (CLI) | payer OTHER ==
[~2017-06-26] MED LIST: ALENDRONATE SOD70 MG; AMLODIPINE BESY10 MG PO; B-12500 MCG; CALCIUM 500+D1 EACH
--- NOTE | 2017-06-26 14:43 | Diagnostic Imaging Report ---
EXAM: CT Chest WITHOUT contrast 06/26/2017 12:52 PM INDICATION: Pneumonia. Follow-up. COMPARISON: 04/14/2017. TECHNIQUE: Chest was scanned utilizing a multidetector helical scanner from the lung apex through the level of the adrenal glands without administration of IV contrast. Absence of intravenous contrast decreases sensitivity for detection of lymphadenopathy and vascular pathology. Coronal and sagittal reformations were obtained. Routine protocol was performed. IV CONTRAST: None RADIATION DOSE: Total DLP: 400.47 mGy*cm Estimated effective dose: (DLP x 0.014 x size factor) mSv COMPLICATIONS: None FINDINGS: LINES/ TUBES: None. LUNGS AND AIRWAYS: 1.6 cm pleural-based density in the superior right upper lobe, measuring 0.5 cm on prior examination image 43 series 3. Calcified granuloma in the left lower lobe medially is unchanged. There has been interval improvement of previously present bilateral lower lobe compressive atelectasis/consolidation. There has been also interval resolution of previously present bilateral patchy groundglass densities. Small volume of fluid within the minor fissure has decreased since the prior examination. Bilateral dependent atelectasis. A 1.0 cm groundglass nodular density in the right middle lobe anteriorly on images 70 series 3 is unchanged. PLEURA: Small to moderate right pleural effusion is again observed. The previously present left pleural effusion has resolved. HEART AND MEDIASTINUM: Mild atrophy of the right thyroid lobe. No mediastinal, hilar or axillary lymphadenopathy. Ectasia of the thoracic aorta with the ascending aorta measuring 4.3 cm in maximal axial dimension on image 55 series 2. The pulmonary trunk is also dilated at 3.4 cm maximal dimension. Coronary artery calcifications. Trace pericardial effusion again noted. Calcifications of the aortic and valves. UPPER ABDOMEN: Limited non-contrast views of the upper abdomen show a nodular density in the anterior perihepatic space measuring 1.3 cm on image 91 series 2, previously 1.1 cm on image 108 series 2, possibly lining large epiphrenic lymph node. 5.0 cm cyst is present in the posterolateral interpolar region of the right kidney, only partially visualized. Mild thickening of the adrenal gland bilaterally without measurable nodules. BONES: No acute osseous abnormality. SOFT TISSUES: Unremarkable. IMPRESSION: 1. Interval resolution of small left pleural effusion and bilateral lower lobe compressive atelectasis versus consolidations. 2. Small volume right pleural effusion is unchanged. 3. Interval resolution of previously present pulmonary edema. 4. Stable to mildly increased right upper lobe pleural-based density and right middle lobe groundglass density. Suggest a follow-up CT chest nodule protocol in 6 months to further establish the stability. 5. Mildly enlarged right epiphrenic lymph node. Signed by: Dr. Mandie Martínez M.D. on 06/26/2017 2:40 PM
== END ==
LOC: CT 12:38
PROVIDERS: ATTEND Internal Medicine
DX: Z87.01 Personal history of pneumonia (recurrent) (principal); Z87.891 Personal history of nicotine dependence
CPT/HCPCS: 71250

== ENCOUNTER → 2017-07-10 | Outpatient (CLI) | payer OTHER | LOC: RESP 09:12 | PROVIDERS: ATTEND Internal Medicine | DX: Z87.891 Personal history of nicotine dependence (principal) | CPT/HCPCS: 94060; 94727; 94729 ==

== ENCOUNTER → 2017-10-14 | Outpatient (CLI) | payer OTHER ==
--- NOTE | 2017-10-14 11:14 | Diagnostic Imaging Report ---
PROCEDURE:CT CHEST WITHOUT CONTRAST COMPARISON:None. INDICATIONS:PLEURAL EFFUSION TECHNIQUE: Axial CT images of the chest were obtained from the lung apices through the adrenal glands. Coronal and sagittal reformations were made available for review. No intravenous contrast was administered. RADIATION DOSE: Total DLP: 288.1 mGy*cm Estimated effective dose: (DLP x 0.014 x size factor) mSv FINDINGS: Lymph nodes: No enlarged axillary, supraclavicular, mediastinal, or hilar lymph nodes. A right cardiophrenic lymph node measures 2.2 x 2.2 cm (previously, 1.3 x 1.6 cm). Thyroid/base of neck: Unremarkable. Heart \T\ Mediastinum:Stable cardiomegaly. The main pulmonary artery measures 3.3 cm in diameter. The ascending aorta measures 4.2 cm in diameter. A pericardial effusion measures 4 mm and is stable. Calcifications of the coronary arteries and mitral valve are stable. The esophagus is collapsed. Lungs: Right lung: Diffusely hyperinflated suggestive of COPD. Round soft tissue structure in the medial upper lobe abutting the anterior pleura and median junction line measures 1.3 x 1.9 cm (previously, 1.0 x 1.6 cm). The pleural focus of ground glass attenuation a lateral upper lobe measures 1.1 x 1.6 cm and is stable. A calcified granuloma in the lower lobe abutting the major fissure measures 3 mm. Left lung: Diffusely hyperinflated. Calcified nodule in the anterior basal segment of the lower lobe measures 1.1 x 1.4 cm and is stable. There are no new nodules. Pleura: Posterior layering right pleural effusion measures 6.1 cm (previously, 3.5 cm). No evidence of left pleural effusion. Upper abdomen:A cyst in the upper pole of the right kidney is stable. No mass in the visualized portions of the liver, pancreas, spleen, or adrenal glands. Musculoskeletal: No lytic or blastic lesions. No compression deformities. CONCLUSION: 1. Stable chronic right pleural effusion. 2. Enlarging mass in the anteromedial right upper lobe and enlarging right cardiophrenic lymph node, both concerning for malignancy. Consider evaluation of the right upper lobe nodule with PET to determine metabolic activity. 3. Stable ascending aortic ectasia and enlarged main pulmonary artery suggestive of pulmonary artery hypertension. Dictated by: Jeanne House M.D. on 10/14/2017 at 11:18 Electronically approved by: Jeanne House M.D. on 10/14/2017 at 11:18
== END ==
LOC: CT 08:40
PROVIDERS: ATTEND Internal Medicine
DX: J90 Pleural effusion, not elsewhere classified (principal)
CPT/HCPCS: 71250

== ENCOUNTER → 2017-11-08 | Outpatient (CLI) | payer OTHER ==
[~2017-11-08] MED LIST changes: +FENTANYL CITRATE/PF 100MCG/2 ML INJ ONE
--- NOTE | 2017-11-08 09:47 | Diagnostic Imaging Report ---
PROCEDURE: ULTRASOUND GUIDED RIGHT DIAGNOSTIC THORACENTESIS INDICATIONS: Pleural Effusion COMPARISON: None. TECHNIQUE: The patient was informed of the nature of the proposed procedure. The purposes, alternatives, risks, and benefits were explained and discussed. All questions were answered and written consent was obtained. Medications: 1% Xylocaine DESCRIPTION/FINDINGS: Informed consent was obtained from the patient. Sterile technique was used. An ultrasound-guided right sided diagnostic thoracentesis was performed. With the use of ultrasound guidance, a small right pleural fluid collection was identified. After infiltrating the skin with 1% xylocaine, a 20 gauge spinal needle was advanced into the right pleural space and 60 cc of serosanguinous fluid was removed. The needle was removed without immediate complication. A chest radiograph was ordered post procedurally. Samples were sent for analysis. IMPRESSION: ULTRASOUND GUIDED RIGHT SIDED DIAGNOSTIC THORACENTESIS ABOVE. Dictated by: CESAR ROJAS M.D. on 11/08/2017 at 9:19 Electronically approved by: CESAR ROJAS M.D. on 11/08/2017 at 9:19
--- NOTE | 2017-11-08 09:47 | Diagnostic Imaging Report ---
PROCEDURE: CHEST XRAY POST PROCEDURE COMPARISON: Chest radiograph 11/06/[address] chest 10/14/17. INDICATIONS: POST THORACENTESIS FINDINGS: LUNGS: Please refer to chest CT report for details of right sided lung findings. No evidence of pneumonia or pulmonary edema. PLEURA: Persistent small right apical pneumothorax measuring up to 7 mm. There is a new air component in right sided pleural effusion, now a small hydropneumothorax post thoracentesis. HEART \T\ MEDIASTINUM: The heart is within normal size-limits. BONES \T\ SOFT TISSUES: No acute findings. CONCLUSION: Status post right sided diagnostic thoracentesis with persistent small right apical pneumothorax and new air component of right sided effusion, now a small hydropneumothorax. Dictated by: CESAR ROJAS M.D. on 11/08/2017 at 9:45 Electronically approved by: CESAR ROJAS M.D. on 11/08/2017 at 9:45
[2017-11-08 11:25] LABS: GLUCOSE,BODY FLUID < 5 mg/dL
--- NOTE | 2017-11-08 11:25 | Diagnostic Imaging Report ---
PROCEDURE: CHEST XRAY POST PROCEDURE COMPARISON: Chest radiograph 11/08/[address] chest 10/14/17. INDICATIONS: POST THORACENTESIS, 2 HOURS FINDINGS: LUNGS: Please refer to chest CT report for details of right sided lung findings. No evidence of pneumonia or pulmonary edema. PLEURA: Persistent small right apical pneumothorax measuring up to 7 mm. Small right hydropneumothorax is unchanged. HEART \T\ MEDIASTINUM: The cardiomediastinal silhouette is unchanged. BONES \T\ SOFT TISSUES: No acute findings. CONCLUSION: Status post right sided diagnostic thoracentesis with persistent small right apical pneumothorax/hydropneumothorax unchanged. Dictated by: CESAR ROJAS M.D. on 11/08/2017 at 11:30 Electronically approved by: CESAR ROJAS M.D. on 11/08/2017 at 11:30
[2017-11-08 11:28] LABS: BODY FLUID APPEARANCE CLOUDY; BODY FLUID COLOR RED
[2017-11-08 11:31] LABS: BODY FLUID TYPE PLEURAL
[2017-11-08 11:34] LABS: LYMPHOCYTES,BODY FLUID 73 %; MONO/MACROPHG,BODY FLUID 8 %; NEUTROPHILS,BODY FLUID 8 %; OTHER CELLS,BODY FLUID 11 %
[2017-11-08 11:35] LABS: RBC,BODY FLUID 495 cells/uL; WBC,BODY FLUID 594 cells/uL
== END ==
LOC: US 06:52
PROVIDERS: ATTEND Internal Medicine
DX: J90 Pleural effusion, not elsewhere classified (principal)
CPT/HCPCS: 32555; 36415; 71045; 82945; 83615; 83986; 84157; 84311; 84478; 88112; 88305; 88342; 89051

== ENCOUNTER → 2018-06-06 | Outpatient (CLI) | payer MEDICARE ==
[~2018-06-06] MED LIST changes: -FENTANYL CITRATE/PF 100MCG/2 ML INJ ONE
[2018-06-06 10:30] LABS: PARTIAL THROMBOPLASTIN TIME 31.5 seconds (23.8-35.5); PROTHROMBIN TIME 14.1 seconds (11.9-14.5)
--- NOTE | 2018-06-06 11:30 | NUR ---
1130am Rt thoracentesis(therapeutic only) performed by (Dr Russell Radiologist) in US[facility], (Chela Hollins RN Rad Nurse)for bedside monitoring. 1900cc dark matty red effluent.Dressing applied by . Site w/o bruising or hematoma. Report face to face and phone with Laron Gong. Site w/o drainage or bruising. Local anesthesia only 96% Sat on room . Vs stable Has left 22g in ac w/o s/s infiltration placed in IR and for standby use only.At baseline orientation PERRLA Respirations regular and unlabored. Abd. soft and non tender denies necessity to defecate or urinate. Skin warm and dry less 3sec refill. at bedside. May be dc if stable after Cxr and no complications and vs and site stable . CXR placed in computer for 12noon.Transfer to Welcome Desk Agent recovery area #10 Stable vs and site checked with handoff report given to Laron GONG and Didi GONG. Tammy Hollins Rn (Radiology Nurse)
--- NOTE | 2018-06-06 11:45 | Diagnostic Imaging Report ---
Procedure: Ultrasound-guided right therapeutic thoracentesis. curb machine operator: Markus Russell MD Pre-operative diagnosis: Large right pleural effusion Post-operative diagnosis: Moderate right pleural effusion. Conscious Sedation: None Additional Medications: Lidocaine 1% for local anesthesia Contrast used: None Estimated blood loss: <5 cc Blood proximal administered: None Specimens: 1900 cc matty-colored serous fluid Implants: None Condition at completion: Stable Disposition: To recovery area and then discharge home. DISCUSSION: Informed consent was obtained and documented in the medical record. The patient was placed in the sitting position on the sonographic table. The right posterolateral chest wall was prepped and draped in the standard sterile fashion. A suitable percutaneous intercostal approach to the right pleural space was identified and the overlying skin was infiltrated with 1% lidocaine for local anesthesia. Moderate right pleural effusion was identified on ultrasound. Then under continuous sonographic guidance, a 5 [place] Yueh needle catheter was advanced into the pleural space. The catheter was advanced off the needle and connected to vacuum bottle with subsequent evacuation of 1900 cc of matty colored serous fluid. The catheter was removed and a sterile, occlusive dressing was applied. Postprocedure sonographic image showed residual moderate right pleural effusion. The patient tolerated the procedure well without immediate complication. IMPRESSION: Successful ultrasound-guided therapeutic right thoracentesis with evacuation of 1900 cc of serous fluid. Signed by: Dr. Markus Russell MD on 06/06/2018 11:41 AM
--- NOTE | 2018-06-06 13:00 | NUR ---
1300 chest xray upright portable completed. Dr Russell checked film OK to dc now home if vs and site stable. Reported to Laron STAFFORD pt with stable site and vs. Discharge papers and POC with . 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 Denies CP,SOB ready to go home. Knows importance of f/o care.
--- NOTE | 2018-06-06 15:08 | Diagnostic Imaging Report ---
EXAMINATION: CHEST XRAY POST PROCEDURE INDICATION: Status post right-sided thoracentesis. COMPARISON: Chest radiograph 04/13/2017. FINDINGS: TUBES and LINES: None. LUNGS/PLEURA: There is a moderate right-sided pleural effusion with patchy opacity in the right lung, sparing the apex. The left lung is clear. No evidence of pulmonary edema. HEART AND MEDIASTINUM: The cardiomediastinal silhouette is unchanged. Ectatic and tortuous thoracic aorta with atherosclerotic calcifications. BONES AND SOFT TISSUES: No acute osseous abnormality. UPPER ABDOMEN: No free air under the diaphragm. IMPRESSION: Status post right thoracentesis with moderate residual right pleural effusion. Multifocal opacities in the right lung could represent atelectasis or pneumonia in the appropriate clinical setting. Recommend follow-up chest radiograph in 6-8 weeks to assess for resolution. Signed by: Dr. Markus Russell MD on 06/06/2018 3:05 PM
== END ==
LOC: US 09:26
PROVIDERS: ATTEND Internal Medicine
DX: J90 Pleural effusion, not elsewhere classified (principal); C45.9 Mesothelioma, unspecified
CPT/HCPCS: 32555; 36415; 71045; 85049; 85610; 85730

== ENCOUNTER → 2018-07-31 | Outpatient (CLI) | payer MEDICARE ==
[2018-07-30 16:42] LABS: INR 0.97; PROTHROMBIN TIME 13.4 seconds (11.9-14.5)
[~2018-07-31] VITALS: Ht 170.2 cm; Wt 61.2 kg
[~2018-07-31] MED LIST changes: +PRESERVISION A1 EACH PO; +SODIUM CHLORIDE 0.9% 1000ML 1,000 ML ONE
--- OUTSIDE RECORDS SUMMARY | 2018-07-31 09:48 | XMS REPORT ---
Author Author [facility] Address Unknown Phone Unavailable Care Team Providers Care Policy Specialist Name Role Phone KAREN BROTHERS Unavailable Unavailable BRISSA BRIONES Unavailable Unavailable MICAH ROY Unavailable Unavailable Problems This patient has no known problems. Allergies, Adverse Reactions, Alerts This patient has no known allergies or adverse reactions. Medications This patient has no known medications. Results Test Description Test Time Test Comments Text Results Atomic Results Result Comments CHEST XRAY POST PROCEDURE 2018-06-06 12:55:00 [place] [address] Patient Name: NELI JUAREZ MR #: [id number] : 1930 Age/Sex: 87/M Req #: [id number] Adm Physician: Ordered by: CESAR RUSSELL MD Report #: [id number] Location: Room/Bed: Procedure: [id number] DX/CHEST XRAY POST PROCEDURE Exam Date: Exam Time: REPORT STATUS: Signed EXAMINATION: CHEST XRAY POST PROCEDURE INDICATION: S tatus post right-sided thoracentesis. COMPARISON: Chest radiograph 04/13/2017. FINDINGS: TUBES and LINES: None. LUNGS/PLEURA: There is a moderate right-sided pleural effusion with patchy opacity in the right lung, sparing the apex. The left lung is clear. No evidence of pulmonary edema. HEART AND MEDIASTINUM: The cardiomediastinal silhouette is unchanged. Ectatic and tortuous thoracic aorta with atherosclerotic calcifications. BONES AND SOFT TISSUES: No acute osseous abnormality. UPPER ABDOMEN: No free air under the diaphragm. IMPRESSION: Status post right thoracentesis with moderate residual right pleural effusion. Multifocal opacities in the right lung could represent atelectasis or pneumonia in the appropriate clinical setting. Recommend follow-up chest radiograph in 6-8 weeks to assess for resolution. Signed by: Dr. Cesar Russell MD on 06/06/2018 3:05 PM Dictated By: CESAR RUSSELL MD 1505 Transcribed By: ARIANNA on 06/06/18 1509 COPY TO: CESAR RUSSELL MD THORACENTESIS/US GUIDED 2018-06-06 11:39:00 [place] [address] Patient Name: NELI JUAREZ MR #: [id number] : 1930 Age/Sex: 87/M Req #: [id number] Adm Physician: Ordered by: KAREN BROTHERS MD Report #: [id number] Location: Room/Bed: Procedure: [id number] US/THORACENTESIS/US GUIDED Exam Date: 06/06/18 Exam Time: 1044 REPORT STATUS: Signed Procedure: Ultrasound-guided right therapeutic tho racentesis. carbide operator: Cesar Russell MD Pre-operative diagnosis: Large right pleural effusion Post-operative diagnosis: Moderate right pleural effusion. Conscious Sedation: None Additional Medications: Lidocaine 1% for local anesthesia Contrast used: None Estimated blood loss: <5 cc Blood proximal administered: None Specimens: 1900 cc matty-colored serous fluid Implants: None Condition at completion: Stable Disposition: To recovery area and then discharge home. DISCUSSION: Informed consent was obtained and documented in the medical record. The patient was placed in the sitting position on the sonographic table. The right posterolateral chest wall was prepped and draped in the standard sterile fashion. A suitable percutaneous intercostal approach to the right pleural space was identified and the overlying skin was infiltrated with 1% lidocaine for local anesthesia. Moderate right pleural effusion was identified on ultrasound. Then under continuous sonographic guidance, a 5 Indonesian Yueh needle catheter was advanced into the pleural space. The catheter was advanced off the needle and connected to vacuum bottle with subsequent evacuation of 1900 cc of matty colored serous fluid. The catheter was removed and a sterile, occlusive dressing was applied. Postprocedure sonographic image showed residual moderate right pleural effusion. The patient tolerated the procedure well without immediate complication. IMPRESSION: Successful ultrasound-guided therapeutic right thoracentesis with evacuation of 1900 cc of serous fluid. Signed by: Dr. Cesar Russell MD on 06/06/2018 11:41 AM Dictated By: CESAR RUSSELL MD 1141 Transcribed By: ARIANNA on 06/06/18 1141 COPY TO: KAREN BROTHERS MD CHEST XRAY POST PROCEDURE 2017-11-08 11:30:00 [place] [address] Patient Name: NELI JUAREZ MR #: [id number] : 1930 Age/Sex: 87/M Req #: [id number] Adm Physician: Ordered by: CESAR RUSSELL MD Report #: [id number] Location: US Room/Bed: Procedure: DX/CHEST XRAY POST PROCEDURE Exam Date: Exam Time: REPORT STATUS: Signed PROCEDURE: CHEST XRAY POST PROCEDURE COMPARISON: Chest radiograph 11/08/[address] chest 10/14/17. INDICATIONS: POST THORACENTESIS, 2 HOURS FINDINGS: LUNGS: Please refer to chest CT report for details of right sided lung findings. No evidence of pneumonia or pulmonary edema. PLEURA: Persistent small right apical pneumothorax measuring up to 7 mm. Small right hydropneumothorax is unchanged. HEART T MEDIASTINUM: The cardiomediastinal silhouette is unchanged. BONES T SOFT TISSUES: No acute findings. CONCLUSION: Status post right sided diagnostic thoracentesis with persistent small right apical pn eumothorax/hydropneumothorax unchanged. Dictated by: CESAR RUSSELL M.D. on 11/08/2017 at 11:30 Electronically approved by: CESAR RUSSELL M.D. on 11/08/2017 at 11:30 Dictated By: CESAR RUSSELL MD 1130 Transcribed By: MATIAS on 11/08/17 1130 COPY TO: CESAR RUSSELL MD CHEST XRAY POST PROCEDURE 2017-11-08 09:45:00 [place] [address] Patient Name: NELI JUAREZ MR #: [id number] : 1930 Age/Sex: 87/M Req #: [id number] Adm Physician: Ordered by: CESAR RUSSELL MD Report #: [id number] Location: Room/Bed: Procedure: [id number] DX/CHEST XRAY POST PROCEDURE Exam Date: Exam Time: REPORT STATUS: Signed PROCEDURE: CHEST XRAY POST PROCEDURE COMPARISON: Chest radiograph 11/06/[address] chest 10/14/17. INDICATIONS: POST THORACENTESIS FINDINGS: LUNGS: Please refer to chest CT report for details of right sided lung findings. No evidence of pneumonia or pulmonary edema. PLEURA: Persistent small right apical pneumothorax measuring up to 7 mm. There is a new air component in right sided pleural effusion, now a small hydropneumothorax post thoracentesis. HEART T MEDIASTINUM: The heart is within normal size- limits. BONES T SOFT TISSUES: No acute findings. CONCLUSION: Status post right sided diagnostic thoracentesis with persistent small right apical pneumothorax and new air component of right sided effusion, now a small hydropneumothorax. Dictated by: CESAR RUSSELL M.D. on 11/08/2017 at 9:45 Electronically approved by: CESAR RUSSELL M.D. on 11/08/2017 at 9:45 Dictated By: CESAR RUSSELL MD Transcribed By: MATIAS on 11/08/1745 COPY TO: CESAR RUSSELL MD THORACENTESIS/US GUIDED 2017-11-08 09:19:00 [place] [address] Patient Name: NELI JUAREZ MR #: [id number] : 1930 Age/Sex: 87/M Req #: [id number] Adm Physician: Ordered by: BRISSA BRIONES MD Report #: [id number] Location: Room/Bed: Procedure: [id number] US/THORACENTESIS/US GUIDED Exam Date: Exam Time: REPORT STATUS: Signed PROCEDURE: ULTRASOUND GUIDED RIGHT DIAGNOSTIC THORACENTESIS INDICATIONS: Pleural Effusion COMPARISON: None. TECHNIQUE: The patient was informed of the nature of the proposed procedure. The purposes, alternatives, risks, and benefits were explained and discussed. All questions were answered and written consent was obtained. Medications: 1% Xylocaine DESCRIPTION/FINDINGS: Informed consent was obtained from the patient. Sterile technique was used. An ultrasound-guided right sided diagnostic thoracentesis was performed. With the use of ultrasound guidance, a small right pleural fluid collection was identified. After infiltrating the skin with 1% xylocaine, a 20 gauge spinal needle was advanced into the right pleural space and 60 cc of serosanguinous fluid was removed. The needle was removed without immediate complication. A chest radiograph was ordered post procedurally. Samples were sent for analysis. IMPRESSION: ULTRASOUND GUIDED RIGHT SIDED DIAGNOSTIC THORACENTESIS ABOVE. Dictated by: CESAR RUSSELL M.D. on 11/08/2017 at 9:19 Electronically approved by: CESAR RUSSELL M.D. on 11/08/2017 at 9:19 Dictated By: CESAR RUSSELL MD 8 Transcribed By: MATIAS on 11/08/17918 COPY TO: BRISSA BRIONES MD CHEST SINGLE (NOT PORTABLE) 2017-11-06 14:27:00 [place] [address] Patient Name: NELI JUAREZ MR #: [id number] : 1930 Age/Sex: 86/M Req #: [id number] Adm Physician: Ordered by: LINNETTE REYES MD Report #: [id number] Location: CT Room/Bed: Procedure: [id number] DX/CHEST SINGLE (NOT PORTABLE) Exam Date: 11/06/17 Exam Time: 1049 REPORT STATUS: Signed PROCEDURE: X-RAY CHEST, ONE VIEW COMPARISON: 11/06/2017 at 1307. INDICATIONS: S/P LUNG BIOPSY FINDINGS: Refer to conclusion CONCLUSION: Stable small right apical pneumothorax status post CT-guided lung biopsy, air gap 6 mm. Otherwise no significant interval change compared to prior examinations on 11/06/2017. Dictated by: Linnette Reyes M.D. on 11/06/2017 at 14:27 Electronically approved by: Linnette Reyes M.D. on 11/06/2017 at 14:27 Dictated By: LINNETTE REYES MD 26 Transcribed By: MATIAS on 11/06/171426 COPY TO: LINNETTE REYES MD CHEST SINGLE (NOT PORTABLE) 2017-11-06 13:23:00 [place] [address] Patient Name: NELI JUAREZ MR #: [id number] : 1930 Age/Sex: 86/M Req #: [id number] Adm Physician: Ordered by: LINNETTE REYES MD Report #: [id number] Location: CT Room/Bed: Procedure: [id number] DX/CHEST SINGLE (NOT PORTABLE) Exam Date: 11/06/17 Exam Time: 1301 REPORT STATUS: Signed PROCEDURE: X-RAY CHEST, ONE VIEW COMPARISON: None. INDICATIONS: S/P LUNG BIOPSY FINDINGS: Refer to conclusion CONCLUSION: Marginal interval increase in size of still small right apical pneumothorax, air gap 6 mm. Otherwise stable chest compared to 2 hours prior. Dictated by: Linnette Reyes M.D. on 11/06/2017 at 13:23 Electronically approved by: Linnette Reyes M.D. on 11/06/2017 at 13:23 Dictated By: LINNETTE REYES MD 1323 Transcribed By: MATIAS on 11/06/17 1323 COPY TO: LINNETTE REYES MD FNA WITH IMAGE GUIDANCE 2017-11-06 11:57:00 [place] [address] Patient Name: NELI JUAREZ MR #: [id number] : 1930 Age/Sex: 86/M Req #: [id number] Adm Physician: Ordered by: BRISSA BRIONES MD Report #: [id number] Location: CT Room/Bed: Procedure: IR/FNA WITH IMAGE GUIDANCE Exam Date: 11/06/17 Exam Time: 953 REPORT STATUS: Signed PROCEDURE: CT GUIDED NEEDLE PLACEMENT COMPARISON: CT chest 10/14/2017. Preprocedure diagnosis: Right upper lobe nodule Post procedure diagnosis: Right upper lobe nodule Hydraulic Dredge Operator: Linnette Reyes M.D. Sedation/anesthesia: Fentanyl 25 mcg intravenous, Versed 0.5 mg intravenous. The patient's heart rate and pulse oximetry were continuously monitored by the interventional radiology nurse. Blood pressure was monitored at 5 minute intervals. Additional medications: Lidocaine 1% for local anesthesia Implants/grafts: None Estimated blood loss: Minimal Blood products administered: None Specimens: Fine-needle aspiration specimens x2, core biopsy specimens x3 Condition at completion of procedure: Stable Disposition: Radiology holding Complications: Trace iatrogenic pneumothorax FINDINGS: Informed consent for the procedure was obtained from the patient and documented in the medical record. The patient was placed in the supine position on the CT couch and a marker grid was placed over the right upper chest. Limited CT evaluation of the upper thorax confirmed a suitable percutaneous approach to the right upper lobe paramediastinal pulmonary nodule. The overlying skin was prepped and draped in standard sterile fashion. 1% lidocaine was infiltrated into the skin and subcutaneous tissues for local anesthesia. Then under intermittent CT guidance, a 16 gauge needle guide was advanced to the lateral margin of the nodule. 2 fine needle aspiration specimens were subsequently obtained using 22 gauge, 15 cm needles. Specimens were submitted to on-site cytopathology personnel and intralesional location was confirmed. Subsequently, a total of 3 core biopsy specimens were obtained coaxially using an 18 gauge, 2 cm throw core biopsy apparatus with limited CT scan confirming intralesional position of the biopsy needle. Specimens were placed in formalin by pathology personnel. At the conclusion of sampling the needle guide was removed and a sterile, occlusive dressing was applied. A trace iatrogenic right pneumothorax was noted. The patient remained asymptomatic with stable vital signs throughout the procedure. CONCLUSION: Successful CT-guided fine needle aspiration and core biopsies of a right upper lobe paramediastinal pulmonary nodule. Trace iatrogenic pneumothorax will be monitored by serial chest radiographs. Dictated by: Linnette Reyes M.D. on 11/06/2017 at 11:57 Electronically approved by: Linnette Reyes M.D. on 11/06/2017 at 11:57 Dictated By: LINNETTE REYES MD 1157 Transcribed By: MATIAS on 11/06/17 1157 COPY TO: BRISSA BRIONES MD BIOPSY LUNG 2017-11-06 11:57:00 [place] [address] Patient Name: NELI JUAREZ MR #: [id number] : 1930 Age/Sex: 86/M Req #: [id number] Adm Physician: Ordered by: BRISSA BRIONES MD Report #: [id number] Location: [place] Room/Bed: Procedure: [id number] IR/BIOPSY LUNG Exam Date: 11/06/17 Exam Time: 953 REPORT STATUS: Signed PROCEDURE: CT GUIDED NEEDLE PLACEMENT COMPARISON: CT chest 10/14/2017. Preprocedure diagnosis: Right upper lobe nodule Post procedure diagnosis: Right upper lobe nodule Hydraulic Dredge Operator: Linnette Reyes M.D. Sedation/anesthesia: Fentanyl 25 mcg intravenous, Versed 0.5 mg intravenous. The patient's heart rate and pulse oximetry were continuously monitored by the interventional radiology nurse. Blood pressure was monitored at 5 minute intervals. Additional medications: Lidocaine 1% for local anesthesia Implants/grafts: None Estimated blood loss: Minimal Blood products administered: None Specimens: Fine-needle aspiration specimens x2, core biopsy specimens x3 Condition at completion of procedure: Stable Disposition: Radiology holding Complications: Trace iatrogenic pneumothorax FINDINGS: Informed consent for the procedure was obtained from the patient and documented in the medical record. The patient was placed in the supine position on the CT couch and a marker grid was placed over the right upper chest. Limited CT evaluation of the upper thorax confirmed a suitable percutaneous approach to the right upper lobe paramediastinal pulmonary nodule. The overlying skin was prepped and draped in standard sterile fashion. 1% lidocaine was infiltrated into the skin and subcutaneous tissues for local anesthesia. Then under intermittent CT guidance, a 16 gauge needle guide was advanced to the lateral margin of the nodule. 2 fine needle aspiration specimens were subsequently obtained using 22 gauge, 15 cm needles. Specimens were submitted to on-site cytopathology personnel and intralesional location was confirmed. Subsequently, a total of 3 core biopsy specimens were obtained coaxially using an 18 gauge, 2 cm throw core biopsy apparatus with limited CT scan confirming intralesional position of the biopsy needle. Specimens were placed in formalin by pathology personnel. At the conclusion of sampling the needle guide was removed and a sterile, occlusive dressing was applied. A trace iatrogenic right pneumothorax was noted. The patient remained asymptomatic with stable vital signs throughout the procedure. CONCLUSION: Successful CT-guided fine needle aspiration and core biopsies of a right upper lobe paramediastinal pulmonary nodule. Trace iatrogenic pneumothorax will be monitored by serial chest radiographs. Dictated by: Linnette Reyes M.D. on 11/06/2017 at 11:57 Electronically approved by: Linnette Reyes M.D. on 11/06/2017 at 11:57 Dictated By: LINNETTE REYES MD 1157 Transcribed By: MATIAS on 11/06/177 COPY TO: BRISSA BRIONES MD CT GUIDED BIOPSY/ASPIR/INJ/AMAN 2017-11-06 11:57:00 [place] [address] Patient Name: NELI JUAREZ MR #: [id number] : 1930 Age/Sex: 86/M Req #: [id number] [facility] Physician: Ordered by: BRISSA BRIONES MD Report #: [id number] Location: CT Room/Bed: Procedure: [id number] CT/CT GUIDED BIOPSY/ASPIR/INJ/AMAN Exam Date: 11/06/17 Exam Time: 0954 REPORT STATUS: Signed PROCEDURE: CT GUIDED NEEDLE PLACEMENT COMPARISON: CT chest 10/14/2017. Preprocedure diagnosis: Right upper lobe nodule Post procedure diagnosis: Right upper lobe nodule Hydraulic Dredge Operator: Linnette Reyes M.D. Sedation/anesthesia: Fentanyl 25 mcg intravenous, Versed 0.5 mg intravenous. The patient's heart rate and pulse oximetry were continuously monitored by the interventional radiology nurse. Blood pressure was monitored at 5 minute intervals. Additional medications: Lidocaine 1% for local anesthesia Implants/grafts: None Estimated blood loss: Minimal Blood products administered: None Specimens: Fine-needle aspiration specimens x2, core biopsy specimens x3 Condition at completion of procedure: Stable Disposition: Radiology holding Complications: Trace iatrogenic pneumothorax FINDINGS: Informed consent for the procedure was obtained from the patient and documented in the medical record. The patient was placed in the supine position on the CT couch and a marker grid was placed over the right upper chest. Limited CT evaluation of the upper thorax confirmed a suitable percutaneous approach to the right upper lobe paramediastinal pulmonary nodule. The overlying skin was prepped and draped in standard sterile fashion. 1% lidocaine was infiltrated into the skin and subcutaneous tissues for local anesthesia. Then under intermittent CT guidance, a 16 gauge needle guide was advanced to the lateral margin of the nodule. 2 fine needle aspiration specimens were subsequently obtained using 22 gauge, 15 cm needles. Specimens were submitted to on-site cytopathology personnel and intralesional location was confirmed. Subsequently, a total of 3 core biopsy specimens were obtained coaxially using an 18 gauge, 2 cm throw core biopsy apparatus with limited CT scan confirming intralesional position of the biopsy needle. Specimens were placed in formalin by pathology personnel. At the conclusion of sampling the needle guide was removed and a sterile, occlusive dressing was applied. A trace iatrogenic right pneumothorax was noted. The patient remained asymptomatic with stable vital signs throughout the procedure. CONCLUSION: Successful CT-guided fine needle aspiration and core biopsies of a right upper lobe paramediastinal pulmonary nodule. Trace iatrogenic pneumothorax will be monitored by serial chest radiographs. Dictated by: Linnette Reyes M.D. on 11/06/2017 at 11:57 Electronically approved by: Linnette Reyes M.D. on 11/06/2017 at 11:57 Dictated By: LINNETTE REYES MD 1157 Transcribed By: MATIAS on 11/06/17 1157 COPY TO: BRISSA BRIONES MD CHEST XRAY POST PROCEDURE 2017-11-06 11:13:00 [place] [address] Patient Name: NELI JUAREZ MR #: [id number] : 1930 Age/Sex: 86/M Req #: [id number] Adm Physician: Ordered by: LINNETTE REYES MD Report #: [id number] Location: CT Room/Bed: Procedure: [id number] DX/CHEST XRAY POST PROCEDURE Exam Date: Exam Time: REPORT STATUS: Signed PROCEDURE: CHEST XRAY POST PROCEDURE COMPARISON: 04/18/2017. INDICATIONS: S/P LUNG BIOPSY FINDINGS: Small right apical pneumothorax status post lung biopsy, maximum air gap 5 mm. Small right pleural effusion. Small nodular opacity in the periphery of the right upper lung. Paramediastinal right upper lobe nodule and left lower lobe nodule are poorly visualized by plain radiography. Left hemithorax is grossly clear. Stable cardiomediastinal contour. No acute osseous abnormality. CONCLUSION: Small right apical pneumothorax status post CT guided lung biopsy, maximum air gap 5 mm. Dictated by: Linnette Reyes M.D. on 11/06/2017 at 11:13 Electronically approved by: Linnette Reyes M.D. on 11/06/2017 at 11:13 Dictated By: LINNETTE REYES MD 1113 Transcribed By: MATIAS on 11/06/17 1113 COPY TO: LINNETTE REYES MD CT CHEST WO 2017-10-14 11:18:00 [place] [address] Patient Name: NELI JUAREZ MR #: [id number] : 1930 Age/Sex: 86/M Req #: [id number] Adm Physician: Ordered by: BRISSA BRIONES MD Report #: [id number] Location: CT Room/Bed: Procedure: [id number] CT/CT CHEST WO Exam Date: 10/14/17 Exam Time: 09 REPORT STATUS: Signed PROCEDURE: CT CHEST WITHOUT CONTRAST COMPARISON: None. INDICATIONS: PLEURAL EFFUSION TECHNIQUE: Axial CT images of the chest were obtained from the lung apices through the adrenal glands. Coronal and sagittal reformations were made available for review. No intravenous contrast was administered. RADIATION DOSE: Total DLP: 288.1 mGy*cm Estimated effective dose: (DLP x 0.014 x size factor) mSv FINDINGS: Lymph nodes: No enlarged axillary, supraclavicular, mediastinal, or hilar lymph nodes. A right cardiophrenic lymph node measures 2.2 x 2.2 cm (previously, 1.3 x 1.6 cm). Thyroid/base of neck: Unremarkable. Heart T Mediastinum: Stable cardiomegaly. The main pulmonary artery measures 3.3 cm in diameter. The ascending aorta measures 4.2 cm in diameter. A pericardial effusion measures 4 mm and is stable. Calcifications of the coronary arteries and mitral valve are stable. The esophagus is collapsed. Lungs: Right lung: Diffusely hyperinflated suggestive of COPD. Round soft tissue structure in the medial upper lobe abutting the anterior pleura and median junction line measures 1.3 x 1.9 cm (previously, 1.0 x 1.6 cm). The pleural focus of ground glass attenuation a lateral upper lobe measures 1.1 x 1.6 cm and is stable. A calcified granuloma in the lower lobe abutting the major fissure measures 3 mm. Left lung: Diffusely hyperinflated. Calcified nodule in the anterior basal segment of the lower lobe measures 1.1 x 1.4 cm and is stable. There are no new nodules. Pleura: Posterior layering right pleural effusion measures 6.1 cm (previously, 3.5 cm). No evidence of left pleural effusion. Upper abdomen: A cyst in the upper pole of the right kidney is stable. No mass in the visualized portions of the liver, pancreas, spleen, or adrenal glands. Musculoskeletal: No lytic or blastic lesions. No compression deformities. CONCLUSION: 1. Stable chronic right pleural effusion. 2. Enlarging mass in the anteromedial right upper lobe and enlarging right cardiophrenic lymph node, both concerning for malignancy. Consider evaluation of the right upper lobe nodule with PET to determine metabolic activity. 3. Stable ascending aortic ectasia and enlarged main pulmonary artery suggestive of pulmonary artery hypertension. Dictated by: Latoya House M.D. on 10/14/2017 at 11:18 Electronically approved by: Latoya House M.D. on 10/14/2017 at 11:18 Dictated By: LATOYA HOUSE MD 1118 Transcribed By: MATIAS on 10/14/17 1118 COPY TO: BRISSA BRIONES MD CT CHEST WO [place] [address] Patient Name: NELI JUAREZ MR #: [id number] : 1930 Age/Sex: 86/M Req #: [id number] Adm Physician: Ordered by: BRISSA BRIONES MD Report #: [id number] Location: CT Room/Bed: Procedure: [id number] CT/CT CHEST WO Exam Date: 06/26/17 Exam Time: 1250 REPORT STATUS: Signed EXAM: CT Chest WITHOUT contrast 06/26/2017 12:52 PM INDICATION: Pneumonia. Follow-up. COMPARISON: 04/14/2017. TECHNIQUE: Chest was scanned utilizing a multidetector helical scanner from the lung apex through the level of the adrenal glands without administration of IV contrast. Absence of intravenous contrast decreases sensitivity for detection of lymphadenopathy and vascular pathology. Coronal and sagittal reformations were obtained. Routine protocol was performed. IV CONTRAST: None RADIATION DOSE: Total DLP: 400.47 mGy*cm Estimated effective dose: (DLP x 0.014 x size factor) mSv COMPLICATIONS: None FINDINGS: LINES/ TUBES: None. LUNGS AND AIRWAYS: 1.6 cm pleural-based density in the superior right upper lobe, measuring 0.5 cm on prior examination image 43 series 3. Calcified granuloma in the left lower lobe medially is unchanged. There has been interval improvement of previously present bilateral lower lobe compressive atelectasis/consolidation. There has been also interval resolution of previously present bilateral patchy groundglass densities. Small volume of fluid within the minor fissure has decreased since the prior examination. Silverio ateral dependent atelectasis. A 1.0 cm groundglass nodular density in the right middle lobe anteriorly on images 70 series 3 is unchanged. PLEURA: Small to moderate right pleural effusion is again observed. The previously present left pleural effusion has resolved. HEART AND MEDIASTINUM: Mild atrophy of the right thyroid lobe. No mediastinal, hilar or axillary lymphadenopathy. Ectasia of the thoracic aorta with the ascending aorta measuring 4.3 cm in maximal axial dimension on image 55 series 2. The pulmonary trunk is also dilated at 3.4 cm maximal dimension. Coronary artery calcifications. Trace pericardial effusion again noted. Calcifications of the aortic and valves. UPPER ABDOMEN: Limited non-contrast views of the upper abdomen show a nodular density in the anterior perihepatic space measuring 1.3 cm on image 91 series 2, previously 1.1 cm on image 108 series 2, possibly lining large epiphrenic lymph node. 5.0 cm cyst is present in the posterolateral interpolar region of the right kidney, only partially visualized. Mild thickening of the adrenal gland bilaterally without measurable nodules. BONES: No acute osseous abnormality. SOFT TISSUES: Unremarkable. IMPRESSION: 1. Interval resolution of small left pleural effusion and bilateral lower lobe compressive atelectasis versus consolidations. 2. Small volume right pleural effusion is unchanged. 3. Interval resolution of previously present pulmonary edema. 4. Stable to mildly increased right upper lobe pleural-based density and right middle lobe groundglass density. Suggest a follow-up CT chest nodule protocol in 6 months to further establish the stability. 5. Mildly enlarged right epiphrenic lymph node. Signed by: Dr. Mandie Vee M.D. on 06/26/2017 2:40 PM Dictated By: CYDNEY VEE MD, MD 1440 Transcribed By: ARIANNA on 06/26/17 1440 COPY TO: BRISSA BRIONES MD CHEST SINGLE (PORTABLE) [facility] [address] [address] Patient Name: NELI JUAREZ MR #: [id number] : 1930 Age/Sex: 86/M Req #: [id number] Adm Physician: MICAH ROY MD Ordered by: BRISSA BRIONES MD Report #: [id number] Location: MED/SURG3 Room/Bed: [facility] Procedure: [id number] DX/CHEST SINGLE (PORTABLE) Exam Date: 04/18/17 Exam Time: 1350 REPORT STATUS: Signed PROCEDURE: A single AP view of the chest. COMPARISON: [facility], CT, CT CHEST WO, 04/14/2017, 18:06. INDICATIONS: SHORTNESS OF BREATH FINDINGS: Lines/tubes: None. Lungs and pleura: Lungs are well-inflated. Patchy opacity in the left lower lung with blunting of the right lateral costophrenic sulcus, likely representing the previously visualized left e ffusion and associated compressive atelectasis. Small right pleural effusion and likely associated compressive atelectasis. Heart and mediastinum: Stable cardiomegaly with mild central pulmonary venous congestion. Bones: No acute bony abnormality. IMPRESSION: 1. stable cardiomegaly with mild central pulmonary venous congestion. 2. Bilateral pleural effusions and likely associated atelectasis. Carlos Blair M.D. Dictated by: Carlos Blair M.D. on 04/18/2017 at 14:22 Electronically approved by: Carlos Blair M.D. on 04/18/2017 at 14:22 Dictated By: CARLOS BLAIR MD 1422 Transcribed By: INFCE on 04/18/171421 COPY TO: BRISSA BRIONES MD CT CHEST WO [address] [place] [address] Patient Name: NELI JUAREZ MR #: [id number] : 1930 Age/Sex: 86/M Req #: [id number] Adm Physician: MICAH ROY MD Ordered by: MICAH ROY MD Report #: [id number] Location: MED/SURG3 Room/Bed: [facility] Procedure: [id number] CT/CT CHEST WO Exam Date: 04/14/17 Exam Time: 1820 REPORT STATUS: Signed EXAM: CT Chest WITHOUT contrast INDICATION: COMPARISON: None. TECHNIQUE: The Chest was scanned utilizing a multidetector helical scanner without the use of IV contrast. Coronal and sagittal reformations were obtained. Reformatted axial MIP images were obtained and reviewed. IV CONTRAST: None COMPLICATIONS: None RADIATION DOSE: Total DLP: 463 mGy*cm Estimated effective dose: (DLP x 0.015 x size factor) mSv CTDIvol has been reviewed. It is below the limits set by the Radiation Protocol Committee (RPC). FINDINGS: Lines and Tubes: None. Lower Neck: The visualized thyroid gland is grossly unremarkable with no suspicious or significant nodule identified. Heart and Great Vessels: The aorta and main pulmonary artery measure 41 and 38 mm. respectively. The cardiothoracic radio measures 14/26. Small pericardial effusion. Decreased attenuation of blood pool. Advanced coronary artery vascular calcifications, mild mitral annular calcifications, and moderate aortic valvular calcifications. Lymph Nodes: Scattered mediastinal lymph nodes, borderline by size criteria. The hilar regions are sub-optimally evaluated given lack of IV contrast. Lungs: Small left and moderate right pleural effusion. Dense areas of consolidation in the lung bases incompletely evaluated given lack of IV contrast. Scattered septal thickening and scattered groundglass opacities. Minimal bronchiectasis and airspace opacity in the anterior aspect of the left upper lobe with more focal alveolar opacity medial aspect right upper lobe and right middle lobe. Granuloma left lower lobe. Upper abdomen: Limited. Unremarkable. Bones and Soft Tissues: No acute findings. IMPRESSION: 1. Exam limited given lack of IV contrast. 2. Cardiomegaly, small pericardial effusion, small left pleural effusion, moderate right pleural effusion, septal thickening, and scattered groundglass opacities consistent with volume overload. 3. Dense areas of consolidation in the lung bases incompletely evaluated given lack of IV contrast. Findings could represent atelectasis and/or pneumonia, with aspiration not excluded. Scattered areas of nodularity likely infectious. Underlying malignancy difficult to exclude. 4. Ectasia ascending aorta 41 mm. 5. Prominent pulmonary trunk, which can be seen in the setting of pulmonary hypertension. 6. Probable reactive adenopathy. Signed by: Dr. Rupert Grant MD on 04/14/2017 6:44 PM Dictated By: RUPERT GRANT MD 43 Transcribed By: ARIANNA on 04/14/171843 COPY TO: MICAH ROY MD CHEST 2 VIEWS [address] [place] [address] Patient Name: NELI JUAREZ MR #: [id number] : 1930 Age/Sex: 86/M Req #: [id number] Adm Physician: Ordered by: JOSHUA DORMAN MD Report #: [id number] Location: ER Room/Bed: Procedure: [id number] DX/CHEST 2 VIEWS Exam Date: 04/13/17 Exam Time: 1834 REPORT STATUS: Signed EXAM: XR CHEST 2 VIEWS DATE: 04/13/2017 5:36 PM INDICATION: Cough COMPARISON: None FINDINGS: Lines and Tubes: None Heart and Mediastinum: Cardiomegaly. Aortic vascular calcifications. Lungs and Pleura: Patchy basilar opacities. Trace effusions. Bones and Soft Tissues: No acute findings. IMPRESSION: 1. Cardiomegaly with mild edema. Trace effusions. 2. Superimposed pneumonia not excluded. Signed by: Dr. Rupert Grant MD on 04/13/2017 6:47 PM Dictated By: RUPERT GRANT MD 46 Transcribed By: ARIANNA on 04/13/171846 COPY TO: JOSHUA DORMAN MD
--- OUTSIDE RECORDS SUMMARY | 2018-07-31 09:48 | XMS REPORT | Clinical Summary ---
Author Author [facility] Organization [facility] Address Unknown Phone Unavailable Care Team Providers Care Manufacturing Engineering Intern Name Role Phone Jackson Buckley MD PCP Allergies No Known Allergies Medications End Date Status Medication Sig Dispensed Refills Start Date Active amlodipine-benazepril 0 (LOTREL) 10-20 mg per 7 capsule Active alendronate (FOSAMAX) 70 0 MG tablet 7 Active cyanocobalamin, vitamin Place 2,500 0 B-12, 5,000 mcg tablet, mcg under the sublingual tongue daily. Active calcium acetate (PHOSLO) Take 1,334 mg 0 667 mg capsule by mouth 3 (three) times a day with meals. Active Problems Problem Noted Date Hearing loss 11/30/2016 Social History Date Tobacco Use Types Packs/Day Years Used Quit: 1955 Former Smoker Alcohol Use Drinks/Week oz/Week Comments Yes 12 Cans of 7.2 beer Sex Assigned at Date Recorded Not on file Industry Job Start Date Occupation Not on file Not on file Not on file Travel End Travel History Travel Start No recent travel history available. Last Filed Vital Signs Not on file Plan of Treatment Health Maintenance Due Date Last Done Comments SHINGLES VACCINES (#1) 11/08/1979 65+ PNEUMOCOCCAL VACCINE 1994 (1 of 2 - PCV13) PNEUMOCOCCAL 1994 POLYSACCHARIDE VACCINE AGE 65 AND OVER INFLUENZA VACCINE 11/20/2018 Results Not on fileafter 07/30/2017 Insurance Payer Benefit Subscriber ID Type Phone Address Plan / Group [employer] xxxxxxxxx [facility] Advance Directives Patient has advance care planning documents on file. For more information, samantha e contact: Jay Casillas [address] [place] [address]
[2018-07-31 10:25] VITALS: BP 128/1
--- NOTE | 2018-07-31 10:25 | NUR ---
1025am Received pt in [place] Rm #9 Prepped in usual fashion for Rt Pleural cath placement for chronic drain of Rt pleural effusion. DR Roca Radiologist Procedural MD. Vs guarded stable with HR 131. Reported to Supervision Cheri STAFFORD ,Laron,RIVERA and Radiologist.Noted from family , ,Laya Peters stated no supplies or education regarding cath care was done prior today. This explained to Dr Roca who visited with and permanent cath placement rescheduled till another time when all in place. I reached out to Dr Calle office who was unaware of no case management assistance. I did reach out and inform Jenny([facility] ,Inpt bottle caser , who said see routinely doesn't manage home health issues on out pt cases and MD routinely sets up pt needs. 1300pm I reinforce HR elevation second time and pt and family request thoracentesis for relief of weakness, sob elevated HR. A stat CXR per DR Calle and Dr Roca read which confirmed necessity to do thoracocentesis today. Family and Directors of Radiology and [employer] were updated as well as scheduling for radiologic procedure. Freezer Tunnel Operator stated she will update Dr Calle office of update pt status. 1330pm Ultrasound [place] technologist was informed of definite Thoracentesis to be done and Trixie Radiology Nurse given handoff. Pt remains in lab coordinator holding for insurance verification. Pt remains guarded stable. HR still elevate and CXR done and report printed and placed in chart. Radiology nurse Trixie consented pt and transferred per [facility] Radiology DEPT. Family informed and with escorted pt. Pt Remains with no gross issues of pain,pallor,pressure or dysrhythmia Iv remains patent #20 left forearm secured 1000ccNS at bedside not connect and attached to iv pole. 1445 Transfer completed and thoracenthesis to be done in radiology dept with recovery in radiology with potential dc today. jimy/rn
[2018-07-31 11:00] VITALS: BP 128/97
[2018-07-31 12:00] VITALS: BP 128/97
--- NOTE | 2018-07-31 13:25 | Diagnostic Imaging Report ---
EXAM: CHEST SINGLE (NOT PORTABLE) DATE: 07/31/2018 11:41 AM INDICATION: Pleural catheter placement COMPARISON: Chest x-ray, 06/06/2018 FINDINGS: Lines and tubes: None. There is tubing overlying the right hemithorax extending beyond the image in the cervical area, likely extraneous to the patient. Cardiac silhouette is partially obscured by pleural fluid, likely at upper limits of normal. There is complete opacification of the right hemithorax with shift of the heart and the mediastinum toward the left. The left lung is expanded with no pleural effusion or pneumothorax. There is a 1.3 cm density projected at the left lung base, likely due to overlapping structures rather than small nodule. Upper abdomen unremarkable. No acute bony abnormality. IMPRESSION: 1. Marked increase of right pleural effusion with complete opacification of the right hemithorax and mild shift of the mediastinum toward the left. 2. No pleural effusion on the left. 3. Questionable small density at the left lung base, likely overlapping structures. Recommend attention to this area on subsequent chest radiograph. Signed by: Dr. Dale Mcpherson M.D. on 07/31/2018 1:21 PM
[2018-07-31 14:00] VITALS: BP 128/98
[2018-07-31 14:45] VITALS: BP 128/92
--- NOTE | 2018-07-31 15:21 | Diagnostic Imaging Report ---
EXAM: CHEST XRAY POST PROCEDURE, AP Portable DATE: 07/31/2018 Time stamp on exam: 2:45 PM INDICATION: Post thoracentesis chest x-ray COMPARISON: Chest x-ray performed this date at 1:03 PM FINDINGS: LINES/TUBES: None LUNGS: No consolidations or edema. PLEURA: Decrease in the size of the right pleural effusion with a significant amount still present. No pneumothorax. HEART AND MEDIASTINUM: Normal size and contour. Calcification within the aorta. BONES AND SOFT TISSUES: No acute findings. IMPRESSION: Post thoracentesis chest x-ray showing a decrease in the size of the right pleural effusion. No pneumothorax. Signed by: Dr. Karson Roca DO on 07/31/2018 3:18 PM
--- NOTE | 2018-07-31 17:52 | Diagnostic Imaging Report ---
Procedure: Ultrasound-guided right therapeutic thoracentesis. Pre-operative diagnosis: Large right pleural effusion Post-operative diagnosis: Moderate right pleural effusion. Conscious Sedation: None Additional Medications: Lidocaine 1% for local anesthesia Contrast used: None Estimated blood loss: <5 cc Blood products administered: None Specimens: 1900 cc straw-colored serous fluid Implants: None Condition at completion: Stable Disposition: To recovery area and then discharge home. DISCUSSION: Informed consent was obtained and documented in the medical record. The patient was placed in the sitting position on the sonographic table. The right posterolateral chest wall was prepped and draped in the standard sterile fashion. A suitable percutaneous intercostal approach to the right pleural space was identified and the overlying skin was infiltrated with 1% lidocaine for local anesthesia. A large right pleural effusion was identified on ultrasound. Then under continuous sonographic guidance, a 5 Cam[place]onian Precision Biopsyeh needle catheter was advanced into the pleural space. The catheter was advanced off the needle and connected to vacuum bottle with subsequent evacuation of 1900 cc of straw colored serous fluid. The catheter was removed and a sterile, occlusive dressing was applied. Postprocedure sonographic image showed residual moderate right pleural effusion. The patient tolerated the procedure well without immediate complication. Postprocedure chest x-ray was ordered. IMPRESSION: Successful ultrasound-guided therapeutic right thoracentesis with evacuation of 1900 cc of serous fluid. Signed by: Dr. Karson Roca DO on 07/31/2018 5:49 PM
== END | disposition home or self-care (01) ==
LOC: LAB 07-30 05:00 → CATH LAB 09:46 → EDSTATUS 11:30
PROVIDERS: ATTEND Internal Medicine
DX: J91.0 Malignant pleural effusion (principal); Z01.812 Encounter for preprocedural laboratory examination
CPT/HCPCS: 32555; 36415; 71045 ×2; 85049; 85610; J7030